=== PATIENT | male | born 1960 | race Asian ===

== ENCOUNTER 2019-09-21 14:53 | Inpatient (IN) | payer MEDICARE, OTHER ==
[~2019-09-21] VITALS: Ht 144.8 cm; Wt 62.9 kg
[~2019-09-21 14:53] MED LIST: AMLO10TA7 PO; ASPI-825 PO; ERGO400C PO; LORA-999 PO; MULT1TAB70 PO; OMEP20 PO; SIMV-261 PO
[2019-09-21] MEDS ORDERED: BACL10TA PO (15:16)
[2019-09-21] MEDS ORDERED: NIFE10 PO (15:16)
[2019-09-21] MEDS ORDERED: ATOR40TA28 PO (15:16)
[2019-09-21] MEDS ORDERED: SODIUM CHLORIDE 0.9% 2,050 ML IV ONE (15:39)
[2019-09-21 15:42] LABS: GLUCOSE,POINT OF CARE 107 MG/DL (70-110)
[2019-09-21] MEDS ORDERED: 0.9% SODIUM CHLORIDE 10 ML SYRINGE IVP PRN (15:45)
[2019-09-21 16:10] LABS: BASOPHILS % (AUTO) 0.1 % (0.0-2.0); EOSINOPHILS % (AUTO) 0 % (1.0-6.0); HEMATOCRIT 37.5 % (41-53); HEMOGLOBIN 12.9 g/dL (13.5-17.5); LYMPHOCYTES # (AUTO) 0.5 K/uL (1.0-4.8); LYMPHOCYTES % (AUTO) 6.3 % (22.0-44.0); MEAN CORPUSCULAR HGB CONC 34.5 G/dL (31.0-37.0); MEAN CORPUSCULAR VOLUME 93 fL (80-100); MONOCYTES # (AUTO) 1.2 K/uL (0.1-1.0); NEUTROPHILS # (AUTO) 5.6 K/uL (1.8-7.7); NEUTROPHILS % (AUTO) 77.6 % (40.0-70.0); PLATELET COUNT (AUTO) 182 K/uL (150-450); RED BLOOD CELL COUNT(AUTO) 4.04 MIL/uL (4.50-5.90); RED CELL DISTRIBUTION WIDTH 13.5 % (11.5-14.5)
[2019-09-21 16:23] LABS: INR 1.1 (0.9-1.1); PROTHROMBIN TIME 11.4 SEC (9.4-11.6)
[2019-09-21 16:36] LABS: B-TYPE NATRIURETIC PEPTIDE 16 pg/mL (0-100)
[2019-09-21 16:37] LABS: ALANINE AMINOTRANSFERASE 58 U/L (12-78); ALBUMIN 3.3 g/dL (3.4-5.0); ALKALINE PHOSPHATASE 62 U/L (46-116); ANION GAP 11 mmol/L (8-16); ASPARTATE AMINOTRANSFERASE 67 U/L (15-37); BILIRUBIN,TOTAL 0.5 mg/dL (0.1-1.0); CALCIUM, TOTAL 8.2 mg/dL (8.8-10.5); CARBON DIOXIDE 23 mmol/L (22-29); CHLORIDE 101 mmol/L (98-107); CREATININE 0.89 mg/dL (0.60-1.30); GLOMERULAR FILTR. RATE CALC > 60 mL/min (>60); GLUCOSE,RANDOM 119 mg/dL (70-110); SODIUM SERUM 135 mmol/L (136-145); TOTAL PROTEIN, SERUM 6.5 g/dL (6.4-8.2); UREA NITROGEN, BLOOD 22 mg/dL (7-18)
[2019-09-21 16:51] LABS: LACTIC ACID 1.2 mmol/L (0.4-2.0)
[2019-09-21 17:02] LABS: INFLUENZA TYPE A POSITIVE FOR TYPE A (NEGATIVE)
[2019-09-21 17:03] LABS: INFLUENZA TYPE B NEGATIVE FOR TYPE B (NEGATIVE)
[2019-09-21] MEDS ORDERED: ASPI-1182 PO (17:08)
[2019-09-21] MEDS ORDERED: MULT-34 PO (17:08)
[2019-09-21] MEDS ORDERED: NIFE-40 PO (17:08)
[2019-09-21] MEDS ORDERED: CefTRIAXone 1 GM/DEXTROSE 50 ML IV ONE (17:15)
[2019-09-21] MEDS ORDERED: AZITHROMYCIN 500 MG/NS 250 ML IV ONE (17:15)
[2019-09-21] MEDS ORDERED: POTASSIUM CHLORIDE 20 MEQ ER TABLET PO ONE (17:15)
[2019-09-21 17:36] LABS: APPEARANCE,URINE CLEAR (CLEAR); BILIRUBIN,URINE NEGATIVE (NEGATIVE); GLUCOSE, URINE (UA) NEGATIVE (NEGATIVE); KETONES,URINE TRACE mg/dL (NEGATIVE); LEUKOCYTE ESTERASE ,URINE NEGATIVE (NEGATIVE); NITRATE,URINE NEGATIVE (NEGATIVE); OCCULT BLOOD,URINE NEGATIVE (NEGATIVE); PROTEIN,URINE POS 1+ (NEGATIVE); UROBILINOGEN,URINE 0.2 mg/dL (<=1.0)
[2019-09-21 17:53] LABS: BACTERIA,URINE None Seen /HPF (None Seen); RBC,URINE None Seen /HPF (0-2); SQUAMOUS EPITHELIAL CELL,UR None Seen /LPF (None Seen); WBC,URINE 0-2 /HPF (0-5)
[2019-09-21] MEDS ORDERED: OSELTAMIVIR PHOSPHATE 75 MG CAPSULE PO ONE (18:15)
[2019-09-21] MEDS ORDERED: ACETAMINOPHEN 500 MG TABLET PO ONE (18:15)
[2019-09-21] MEDS ORDERED: ONDANSETRON HCL 4 MG/2 ML VIAL IVP PRN (18:30)
[2019-09-21] MEDS ORDERED: ACETAMINOPHEN 325 MG TABLET PO PRN (18:30)
[2019-09-22] VITALS (7 sets, daily range): BP systolic 105–131; BP diastolic 59–82
[2019-09-22] MEDS ORDERED: ONDANSETRON HCL 4 MG/2 ML VIAL IVP PRN (01:30)
[2019-09-22] MEDS ORDERED: MAGNESIUM HYDROXIDE SUSPENSION 30 ML UDCUP PO PRN (01:30)
[2019-09-22] MEDS ORDERED: ZOLPIDEM TARTRATE 5 MG TABLET PO PRN (01:30)
[2019-09-22] MEDS ORDERED: BISACODYL 10 MG RECTAL RECTAL SUPPOSITORY PR PRN (01:30)
[2019-09-22] MEDS ORDERED: ALBUTEROL SULFATE 2.5 MG/0.5 ML NEB SOLUTION NEB PRN (01:30)
[2019-09-22] MEDS ORDERED: IPRATROPIUM BROMIDE 0.5 MG/2.5 ML NEB SOLUTION NEB PRN (01:30)
[2019-09-22] MEDS ORDERED: MORPHINE SULFATE 2 MG/ML SYRINGE IVP PRN (01:30)
[2019-09-22] MEDS: ACETAMINOPHEN 325 MG TABLET PO PRN (04:24)
[2019-09-22 06:17] LABS: BASOPHILS % (AUTO) 0.4 % (0.0-2.0); EOSINOPHILS % (AUTO) 0 % (1.0-6.0); HEMATOCRIT 37.3 % (41-53); HEMOGLOBIN 12.9 g/dL (13.5-17.5); LYMPHOCYTES # (AUTO) 0.7 K/uL (1.0-4.8); LYMPHOCYTES % (AUTO) 7.8 % (22.0-44.0); MEAN CORPUSCULAR HEMOGLOBIN 32.2 pg (26.0-34.0); MEAN CORPUSCULAR HGB CONC 34.5 G/dL (31.0-37.0); MEAN CORPUSCULAR VOLUME 93 fL (80-100); MONOCYTES # (AUTO) 0.9 K/uL (0.1-1.0); MONOCYTES % (AUTO) 10.4 % (2.0-9.0); NEUTROPHILS % (AUTO) 81.4 % (40.0-70.0); PLATELET COUNT (AUTO) 162 K/uL (150-450)
[2019-09-22 06:41] LABS: ALANINE AMINOTRANSFERASE 67 U/L (12-78); ALKALINE PHOSPHATASE 54 U/L (46-116); ANION GAP 11 mmol/L (8-16); ASPARTATE AMINOTRANSFERASE 103 U/L (15-37); BILIRUBIN,TOTAL 0.4 mg/dL (0.1-1.0); CALCIUM, TOTAL 8.3 mg/dL (8.8-10.5); CARBON DIOXIDE 23 mmol/L (22-29); CHLORIDE 106 mmol/L (98-107); CREATININE 0.82 mg/dL (0.60-1.30); GLOMERULAR FILTR. RATE CALC > 60 mL/min (>60); GLUCOSE,RANDOM 87 mg/dL (70-110); POTASSIUM 3.4 mmol/L (3.5-5.1); SODIUM SERUM 140 mmol/L (136-145); TOTAL PROTEIN, SERUM 6.2 g/dL (6.4-8.2); UREA NITROGEN, BLOOD 16 mg/dL (7-18)
[2019-09-22] MEDS: ASPIRIN 81 MG EC TABLET PO SCH (07:55)
[2019-09-22] MEDS: MULTIVITAMINS WITH MINERALS, THERAPEUTIC TABLET PO SCH (07:55)
[2019-09-22] MEDS: NIFEdipine 30 MG ER TABLET PO SCH (07:55)
[2019-09-22] MEDS: CHOLECALCIFEROL (VIT D3) 400 UNITS TABLET PO SCH (07:55)
[2019-09-22] MEDS: DOCUSATE SODIUM 100 MG CAPSULE PO SCH ×2 (07:55→20:31)
[2019-09-22] MEDS: HEPARIN SODIUM,PORCINE 5,000 UNITS/ML VIAL SQ SCH ×2 (07:56→15:44)
[2019-09-22] MEDS: OSELTAMIVIR PHOSPHATE 75 MG CAPSULE PO SCH ×2 (13:19→20:31)
[2019-09-22] MEDS: HYDROCODONE/ACETAMINOPHEN 5-325 MG TABLET PO PRN ×2 (14:53→20:30)
[2019-09-22] MEDS: AZITHROMYCIN 500 MG/NS 250 ML IV SCH (15:45)
[2019-09-22] MEDS ORDERED: SODIUM CHLORIDE 0.9% 250 ML IV ONE (18:12)
[2019-09-22] MEDS: CefTRIAXone 1 GM/DEXTROSE 50 ML IV SCH (18:14)
[2019-09-22] MEDS ORDERED: POTASSIUM CHL 10 MEQ/WATER 50 ML IV PRN (18:15)
[2019-09-22] MEDS ORDERED: POTASSIUM CHLORIDE 20 MEQ ER TABLET PO PRN (18:15)
[2019-09-22] MEDS: BACLOFEN 10 MG TABLET PO SCH (20:31)
[2019-09-22] MEDS: ATORVASTATIN CALCIUM 40 MG TABLET PO SCH (20:31)
[2019-09-22] MEDS ORDERED: 0.9% SODIUM CHLORIDE 5 ML NEB SOLUTION NEB ONE (23:07)
[2019-09-23 05:33] VITALS: BP 124/74
[2019-09-23 07:44] VITALS: BP 122/78
[2019-09-23 08:02] LABS: BASOPHILS % (AUTO) 0.4 % (0.0-2.0); EOSINOPHILS % (AUTO) 0.4 % (1.0-6.0); HEMATOCRIT 35.7 % (41-53); HEMOGLOBIN 12.3 g/dL (13.5-17.5); LYMPHOCYTES # (AUTO) 1.3 K/uL (1.0-4.8); LYMPHOCYTES % (AUTO) 30.9 % (22.0-44.0); MEAN CORPUSCULAR HEMOGLOBIN 32.3 pg (26.0-34.0); MEAN CORPUSCULAR HGB CONC 34.3 G/dL (31.0-37.0); MEAN CORPUSCULAR VOLUME 94 fL (80-100); MONOCYTES # (AUTO) 0.6 K/uL (0.1-1.0); MONOCYTES % (AUTO) 13.7 % (2.0-9.0); NEUTROPHILS # (AUTO) 2.3 K/uL (1.8-7.7); NEUTROPHILS % (AUTO) 54.6 % (40.0-70.0); PLATELET COUNT (AUTO) 163 K/uL (150-450); RED CELL DISTRIBUTION WIDTH 14.1 % (11.5-14.5)
[2019-09-23 08:28] LABS: ALANINE AMINOTRANSFERASE 57 U/L (12-78); ALBUMIN 2.7 g/dL (3.4-5.0); ALKALINE PHOSPHATASE 48 U/L (46-116); ANION GAP 7 mmol/L (8-16); ASPARTATE AMINOTRANSFERASE 79 U/L (15-37); BILIRUBIN,TOTAL 0.2 mg/dL (0.1-1.0); CALCIUM, TOTAL 8.1 mg/dL (8.8-10.5); CARBON DIOXIDE 26 mmol/L (22-29); CHLORIDE 107 mmol/L (98-107); CREATININE 0.83 mg/dL (0.60-1.30); GLOMERULAR FILTR. RATE CALC > 60 mL/min (>60); GLUCOSE,RANDOM 96 mg/dL (70-110); POTASSIUM 3.7 mmol/L (3.5-5.1); SODIUM SERUM 140 mmol/L (136-145); TOTAL PROTEIN, SERUM 5.8 g/dL (6.4-8.2); UREA NITROGEN, BLOOD 22 mg/dL (7-18)
[2019-09-23] MEDS: ASPIRIN 81 MG EC TABLET PO SCH (09:54)
[2019-09-23] MEDS: OSELTAMIVIR PHOSPHATE 75 MG CAPSULE PO SCH ×2 (09:54→20:48)
[2019-09-23] MEDS: CHOLECALCIFEROL (VIT D3) 400 UNITS TABLET PO SCH (09:54)
[2019-09-23] MEDS: DOCUSATE SODIUM 100 MG CAPSULE PO SCH ×2 (09:54→20:48)
[2019-09-23] MEDS: MULTIVITAMINS WITH MINERALS, THERAPEUTIC TABLET PO SCH (09:54)
[2019-09-23] MEDS: HEPARIN SODIUM,PORCINE 5,000 UNITS/ML VIAL SQ SCH ×3 (09:57→16:38)
[2019-09-23] MEDS: NIFEdipine 30 MG ER TABLET PO SCH (09:57)
[2019-09-23 12:11] VITALS: BP 122/75
[2019-09-23 15:45] VITALS: BP 127/72
[2019-09-23] MEDS: CefTRIAXone 1 GM/DEXTROSE 50 ML IV SCH (16:38)
[2019-09-23] MEDS: AZITHROMYCIN 500 MG/NS 250 ML IV SCH (17:43)
[2019-09-23 19:32] VITALS: BP 128/76
[2019-09-23] MEDS: ATORVASTATIN CALCIUM 40 MG TABLET PO SCH (20:48)
[2019-09-23] MEDS: BACLOFEN 10 MG TABLET PO SCH (20:48)
[2019-09-24] VITALS (7 sets, daily range): BP systolic 111–147; BP diastolic 72–94
[2019-09-24 07:31] LABS: BASOPHILS % (AUTO) 0.5 % (0.0-2.0); EOSINOPHILS % (AUTO) 1.1 % (1.0-6.0); HEMATOCRIT 41.6 % (41-53); LYMPHOCYTES # (AUTO) 1.4 K/uL (1.0-4.8); LYMPHOCYTES % (AUTO) 28.7 % (22.0-44.0); MEAN CORPUSCULAR HEMOGLOBIN 31.3 pg (26.0-34.0); MEAN CORPUSCULAR HGB CONC 33.6 G/dL (31.0-37.0); MEAN CORPUSCULAR VOLUME 93 fL (80-100); MONOCYTES # (AUTO) 0.7 K/uL (0.1-1.0); MONOCYTES % (AUTO) 13.5 % (2.0-9.0); NEUTROPHILS # (AUTO) 2.8 K/uL (1.8-7.7); NEUTROPHILS % (AUTO) 56.2 % (40.0-70.0); PLATELET COUNT (AUTO) 187 K/uL (150-450); RED BLOOD CELL COUNT(AUTO) 4.46 MIL/uL (4.50-5.90); RED CELL DISTRIBUTION WIDTH 13.6 % (11.5-14.5)
[2019-09-24 07:51] LABS: ALANINE AMINOTRANSFERASE 68 U/L (12-78); ALBUMIN 2.9 g/dL (3.4-5.0); ALKALINE PHOSPHATASE 57 U/L (46-116); ANION GAP 6 mmol/L (8-16); ASPARTATE AMINOTRANSFERASE 76 U/L (15-37); BILIRUBIN,TOTAL 0.4 mg/dL (0.1-1.0); CALCIUM, TOTAL 8.2 mg/dL (8.8-10.5); CARBON DIOXIDE 29 mmol/L (22-29); CHLORIDE 102 mmol/L (98-107); CREATININE 0.58 mg/dL (0.60-1.30); GLOMERULAR FILTR. RATE CALC > 60 mL/min (>60); GLUCOSE,RANDOM 91 mg/dL (70-110); POTASSIUM 3.8 mmol/L (3.5-5.1); SODIUM SERUM 137 mmol/L (136-145); TOTAL PROTEIN, SERUM 6.5 g/dL (6.4-8.2)
[2019-09-24 08:02] LABS: UREA NITROGEN, BLOOD 11 mg/dL (7-18)
[2019-09-24] MEDS: DOCUSATE SODIUM 100 MG CAPSULE PO SCH ×2 (09:11→21:19)
[2019-09-24] MEDS: CHOLECALCIFEROL (VIT D3) 400 UNITS TABLET PO SCH (09:11)
[2019-09-24] MEDS: MULTIVITAMINS WITH MINERALS, THERAPEUTIC TABLET PO SCH (09:11)
[2019-09-24] MEDS: OSELTAMIVIR PHOSPHATE 75 MG CAPSULE PO SCH ×2 (09:12→21:19)
[2019-09-24] MEDS: HEPARIN SODIUM,PORCINE 5,000 UNITS/ML VIAL SQ SCH ×3 (09:12→15:34)
[2019-09-24] MEDS: NIFEdipine 30 MG ER TABLET PO SCH (09:12)
[2019-09-24] MEDS: ASPIRIN 81 MG EC TABLET PO SCH (09:12)
[2019-09-24] MEDS: AZITHROMYCIN 500 MG/NS 250 ML IV SCH (15:35)
[2019-09-24] MEDS: CefTRIAXone 1 GM/DEXTROSE 50 ML IV SCH (17:01)
[2019-09-24] MEDS: BACLOFEN 10 MG TABLET PO SCH (21:19)
[2019-09-24] MEDS: ATORVASTATIN CALCIUM 40 MG TABLET PO SCH (21:19)
[2019-09-24] MEDS: ACETAMINOPHEN 325 MG TABLET PO PRN (23:55)
[2019-09-25 04:59] VITALS: BP 121/83
[2019-09-25 07:40] VITALS: BP 116/80
[2019-09-25 07:58] LABS: BASOPHILS % (AUTO) 0.6 % (0.0-2.0); EOSINOPHILS % (AUTO) 2.6 % (1.0-6.0); HEMATOCRIT 41.6 % (41-53); HEMOGLOBIN 14.1 g/dL (13.5-17.5); LYMPHOCYTES # (AUTO) 1.4 K/uL (1.0-4.8); LYMPHOCYTES % (AUTO) 33.6 % (22.0-44.0); MEAN CORPUSCULAR HEMOGLOBIN 31.7 pg (26.0-34.0); MEAN CORPUSCULAR HGB CONC 33.9 G/dL (31.0-37.0); MEAN CORPUSCULAR VOLUME 93 fL (80-100); MONOCYTES # (AUTO) 0.8 K/uL (0.1-1.0); MONOCYTES % (AUTO) 19.4 % (2.0-9.0); NEUTROPHILS # (AUTO) 1.8 K/uL (1.8-7.7); NEUTROPHILS % (AUTO) 43.8 % (40.0-70.0); PLATELET COUNT (AUTO) 207 K/uL (150-450); RED BLOOD CELL COUNT(AUTO) 4.45 MIL/uL (4.50-5.90); RED CELL DISTRIBUTION WIDTH 13.5 % (11.5-14.5)
[2019-09-25 08:38] LABS: ALANINE AMINOTRANSFERASE 124 U/L (12-78); ALBUMIN 2.8 g/dL (3.4-5.0); ALKALINE PHOSPHATASE 65 U/L (46-116); ANION GAP 10 mmol/L (8-16); ASPARTATE AMINOTRANSFERASE 117 U/L (15-37); BILIRUBIN,TOTAL 0.4 mg/dL (0.1-1.0); CALCIUM, TOTAL 8.6 mg/dL (8.8-10.5); CARBON DIOXIDE 25 mmol/L (22-29); CHLORIDE 101 mmol/L (98-107); CREATININE 0.71 mg/dL (0.60-1.30); GLOMERULAR FILTR. RATE CALC > 60 mL/min (>60); GLUCOSE,RANDOM 95 mg/dL (70-110); POTASSIUM 4.1 mmol/L (3.5-5.1); SODIUM SERUM 136 mmol/L (136-145); TOTAL PROTEIN, SERUM 6.6 g/dL (6.4-8.2); UREA NITROGEN, BLOOD 18 mg/dL (7-18)
[2019-09-25] MEDS: ASPIRIN 81 MG EC TABLET PO SCH (10:44)
[2019-09-25] MEDS: MULTIVITAMINS WITH MINERALS, THERAPEUTIC TABLET PO SCH (10:45)
[2019-09-25] MEDS: OSELTAMIVIR PHOSPHATE 75 MG CAPSULE PO SCH ×2 (10:45→20:54)
[2019-09-25] MEDS: NIFEdipine 30 MG ER TABLET PO SCH (10:45)
[2019-09-25] MEDS: CHOLECALCIFEROL (VIT D3) 400 UNITS TABLET PO SCH (10:45)
[2019-09-25] MEDS: DOCUSATE SODIUM 100 MG CAPSULE PO SCH ×2 (10:45→20:55)
[2019-09-25] MEDS: HEPARIN SODIUM,PORCINE 5,000 UNITS/ML VIAL SQ SCH ×4 (10:45→23:35)
[2019-09-25 11:21] VITALS: BP 136/85
[2019-09-25 15:12] VITALS: BP 148/86
[2019-09-25] MEDS ORDERED: SODIUM CHLORIDE 0.9% 100 ML ONE (16:38)
[2019-09-25] MEDS: AZITHROMYCIN 500 MG/NS 250 ML IV SCH (16:47)
[2019-09-25] MEDS: CefTRIAXone 1 GM/DEXTROSE 50 ML IV SCH (18:20)
[2019-09-25 19:57] VITALS: BP 147/83
[2019-09-25] MEDS: BACLOFEN 10 MG TABLET PO SCH (20:54)
[2019-09-25] MEDS: ATORVASTATIN CALCIUM 40 MG TABLET PO SCH (20:54)
[2019-09-26 00:04] VITALS: BP 125/81
[2019-09-26 05:50] VITALS: BP 145/88
[2019-09-26 07:06] VITALS: BP 128/96
[2019-09-26 07:17] LABS: BASOPHILS % (AUTO) 0.6 % (0.0-2.0); HEMATOCRIT 40.3 % (41-53); HEMOGLOBIN 13.9 g/dL (13.5-17.5); LYMPHOCYTES # (AUTO) 1.6 K/uL (1.0-4.8); LYMPHOCYTES % (AUTO) 29.9 % (22.0-44.0); MEAN CORPUSCULAR HEMOGLOBIN 31.9 pg (26.0-34.0); MEAN CORPUSCULAR HGB CONC 34.4 G/dL (31.0-37.0); MEAN CORPUSCULAR VOLUME 93 fL (80-100); MONOCYTES # (AUTO) 0.8 K/uL (0.1-1.0); MONOCYTES % (AUTO) 15.6 % (2.0-9.0); NEUTROPHILS # (AUTO) 2.7 K/uL (1.8-7.7); NEUTROPHILS % (AUTO) 50.9 % (40.0-70.0); PLATELET COUNT (AUTO) 237 K/uL (150-450); RED BLOOD CELL COUNT(AUTO) 4.34 MIL/uL (4.50-5.90); RED CELL DISTRIBUTION WIDTH 13.3 % (11.5-14.5)
[2019-09-26 07:37] LABS: ALANINE AMINOTRANSFERASE 224 U/L (12-78); ALBUMIN 2.8 g/dL (3.4-5.0); ALKALINE PHOSPHATASE 71 U/L (46-116); ANION GAP 7 mmol/L (8-16); ASPARTATE AMINOTRANSFERASE 182 U/L (15-37); BILIRUBIN,TOTAL 0.3 mg/dL (0.1-1.0); CALCIUM, TOTAL 8.7 mg/dL (8.8-10.5); CARBON DIOXIDE 28 mmol/L (22-29); CHLORIDE 103 mmol/L (98-107); CREATININE 0.81 mg/dL (0.60-1.30); GLOMERULAR FILTR. RATE CALC > 60 mL/min (>60); GLUCOSE,RANDOM 101 mg/dL (70-110); POTASSIUM 4.2 mmol/L (3.5-5.1); SODIUM SERUM 138 mmol/L (136-145); TOTAL PROTEIN, SERUM 6.5 g/dL (6.4-8.2); UREA NITROGEN, BLOOD 16 mg/dL (7-18)
[2019-09-26] MEDS: CHOLECALCIFEROL (VIT D3) 400 UNITS TABLET PO SCH (09:59)
[2019-09-26] MEDS: MULTIVITAMINS WITH MINERALS, THERAPEUTIC TABLET PO SCH (09:59)
[2019-09-26] MEDS: OSELTAMIVIR PHOSPHATE 75 MG CAPSULE PO SCH ×2 (09:59→20:39)
[2019-09-26] MEDS: DOCUSATE SODIUM 100 MG CAPSULE PO SCH ×2 (09:59→20:44)
[2019-09-26] MEDS: NIFEdipine 30 MG ER TABLET PO SCH (09:59)
[2019-09-26] MEDS: HEPARIN SODIUM,PORCINE 5,000 UNITS/ML VIAL SQ SCH ×2 (09:59→16:38)
[2019-09-26] MEDS: ASPIRIN 81 MG EC TABLET PO SCH (10:35)
[2019-09-26 11:49] VITALS: BP 130/79
[2019-09-26 15:00] VITALS: BP 124/68
[2019-09-26] MEDS: CefTRIAXone 1 GM/DEXTROSE 50 ML IV SCH (16:38)
[2019-09-26] MEDS: AZITHROMYCIN 500 MG/NS 250 ML IV SCH (18:33)
[2019-09-26 19:36] VITALS: BP 137/82
[2019-09-26] MEDS: BACLOFEN 10 MG TABLET PO SCH (20:39)
[2019-09-26] MEDS: ATORVASTATIN CALCIUM 40 MG TABLET PO SCH (20:39)
[2019-09-27] VITALS (7 sets, daily range): BP systolic 122–142; BP diastolic 77–93
[2019-09-27 07:29] LABS: BASOPHILS % (AUTO) 0.4 % (0.0-2.0); HEMATOCRIT 41.7 % (41-53); HEMOGLOBIN 14.3 g/dL (13.5-17.5); LYMPHOCYTES # (AUTO) 1.7 K/uL (1.0-4.8); LYMPHOCYTES % (AUTO) 33.2 % (22.0-44.0); MEAN CORPUSCULAR HEMOGLOBIN 31.8 pg (26.0-34.0); MEAN CORPUSCULAR HGB CONC 34.3 G/dL (31.0-37.0); MEAN CORPUSCULAR VOLUME 93 fL (80-100); MONOCYTES # (AUTO) 0.8 K/uL (0.1-1.0); MONOCYTES % (AUTO) 16.4 % (2.0-9.0); NEUTROPHILS # (AUTO) 2.3 K/uL (1.8-7.7); PLATELET COUNT (AUTO) 274 K/uL (150-450); RED BLOOD CELL COUNT(AUTO) 4.51 MIL/uL (4.50-5.90); RED CELL DISTRIBUTION WIDTH 13.2 % (11.5-14.5)
[2019-09-27 07:44] LABS: ALANINE AMINOTRANSFERASE 270 U/L (12-78); ALBUMIN 2.9 g/dL (3.4-5.0); ALKALINE PHOSPHATASE 72 U/L (46-116); ANION GAP 7 mmol/L (8-16); ASPARTATE AMINOTRANSFERASE 162 U/L (15-37); BILIRUBIN,TOTAL 0.4 mg/dL (0.1-1.0); CALCIUM, TOTAL 8.8 mg/dL (8.8-10.5); CARBON DIOXIDE 27 mmol/L (22-29); CHLORIDE 105 mmol/L (98-107); CREATININE 0.65 mg/dL (0.60-1.30); GLOMERULAR FILTR. RATE CALC > 60 mL/min (>60); GLUCOSE,RANDOM 92 mg/dL (70-110); POTASSIUM 4.2 mmol/L (3.5-5.1); SODIUM SERUM 139 mmol/L (136-145); TOTAL PROTEIN, SERUM 6.7 g/dL (6.4-8.2); UREA NITROGEN, BLOOD 16 mg/dL (7-18)
[2019-09-27] MEDS: HEPARIN SODIUM,PORCINE 5,000 UNITS/ML VIAL SQ SCH ×3 (08:51→17:40)
[2019-09-27] MEDS: NIFEdipine 30 MG ER TABLET PO SCH (08:52)
[2019-09-27] MEDS: ASPIRIN 81 MG EC TABLET PO SCH (08:52)
[2019-09-27] MEDS: OSELTAMIVIR PHOSPHATE 75 MG CAPSULE PO SCH (08:52)
[2019-09-27] MEDS: DOCUSATE SODIUM 100 MG CAPSULE PO SCH ×2 (08:52→20:31)
[2019-09-27] MEDS: CHOLECALCIFEROL (VIT D3) 400 UNITS TABLET PO SCH (08:52)
[2019-09-27] MEDS: MULTIVITAMINS WITH MINERALS, THERAPEUTIC TABLET PO SCH (08:52)
[2019-09-27] MEDS: HYDROCODONE/ACETAMINOPHEN 5-325 MG TABLET PO PRN ×3 (08:53→17:41)
[2019-09-28] MEDS: HEPARIN SODIUM,PORCINE 5,000 UNITS/ML VIAL SQ SCH ×3 (00:54→17:43)
[2019-09-28 04:19] VITALS: BP 127/76
[2019-09-28 06:14] LABS: BASOPHILS % (AUTO) 0.3 % (0.0-2.0); EOSINOPHILS % (AUTO) 2.8 % (1.0-6.0); HEMATOCRIT 41.6 % (41-53); LYMPHOCYTES # (AUTO) 1.6 K/uL (1.0-4.8); LYMPHOCYTES % (AUTO) 24.2 % (22.0-44.0); MEAN CORPUSCULAR HEMOGLOBIN 31.4 pg (26.0-34.0); MEAN CORPUSCULAR HGB CONC 33.7 G/dL (31.0-37.0); MEAN CORPUSCULAR VOLUME 93 fL (80-100); MONOCYTES # (AUTO) 0.9 K/uL (0.1-1.0); MONOCYTES % (AUTO) 13.9 % (2.0-9.0); NEUTROPHILS # (AUTO) 3.9 K/uL (1.8-7.7); NEUTROPHILS % (AUTO) 58.8 % (40.0-70.0); PLATELET COUNT (AUTO) 331 K/uL (150-450); RED BLOOD CELL COUNT(AUTO) 4.47 MIL/uL (4.50-5.90); RED CELL DISTRIBUTION WIDTH 13.7 % (11.5-14.5)
[2019-09-28 06:49] LABS: ALANINE AMINOTRANSFERASE 242 U/L (12-78); ALBUMIN 2.9 g/dL (3.4-5.0); ALKALINE PHOSPHATASE 75 U/L (46-116); ANION GAP 7 mmol/L (8-16); ASPARTATE AMINOTRANSFERASE 105 U/L (15-37); BILIRUBIN,TOTAL 0.3 mg/dL (0.1-1.0); CALCIUM, TOTAL 8.5 mg/dL (8.8-10.5); CARBON DIOXIDE 27 mmol/L (22-29); CHLORIDE 100 mmol/L (98-107); CREATININE 0.72 mg/dL (0.60-1.30); GLOMERULAR FILTR. RATE CALC > 60 mL/min (>60); GLUCOSE,RANDOM 106 mg/dL (70-110); POTASSIUM 4.2 mmol/L (3.5-5.1); SODIUM SERUM 134 mmol/L (136-145); TOTAL PROTEIN, SERUM 6.6 g/dL (6.4-8.2); UREA NITROGEN, BLOOD 18 mg/dL (7-18)
[2019-09-28 08:27] VITALS: BP 126/82
[2019-09-28] MEDS: NIFEdipine 30 MG ER TABLET PO SCH (09:09)
[2019-09-28] MEDS: DOCUSATE SODIUM 100 MG CAPSULE PO SCH ×2 (09:09→20:42)
[2019-09-28] MEDS: ASPIRIN 81 MG EC TABLET PO SCH (09:09)
[2019-09-28] MEDS: MULTIVITAMINS WITH MINERALS, THERAPEUTIC TABLET PO SCH (09:09)
[2019-09-28] MEDS: CHOLECALCIFEROL (VIT D3) 400 UNITS TABLET PO SCH (09:10)
[2019-09-28 11:56] VITALS: BP 117/71
[2019-09-28 16:13] VITALS: BP 129/73
[2019-09-28 20:16] VITALS: BP 144/93
[2019-09-29] MEDS: HEPARIN SODIUM,PORCINE 5,000 UNITS/ML VIAL SQ SCH ×3 (00:24→15:43)
[2019-09-29 00:34] VITALS: BP 135/76
[2019-09-29 04:00] VITALS: BP 142/80
[2019-09-29] MEDS: MULTIVITAMINS WITH MINERALS, THERAPEUTIC TABLET PO SCH (08:16)
[2019-09-29] MEDS: DOCUSATE SODIUM 100 MG CAPSULE PO SCH (08:17)
[2019-09-29] MEDS: NIFEdipine 30 MG ER TABLET PO SCH (08:17)
[2019-09-29] MEDS: CHOLECALCIFEROL (VIT D3) 400 UNITS TABLET PO SCH (08:17)
[2019-09-29] MEDS: ASPIRIN 81 MG EC TABLET PO SCH (08:17)
[2019-09-29 08:24] VITALS: BP 127/79
[2019-09-29] MEDS ORDERED: CHOL400T56 PO (10:53)
[2019-09-29] MEDS ORDERED: DOCU-275 PO (10:54)
[2019-09-29] MEDS ORDERED: HEPA500018 SQ (10:54)
[2019-09-29] MEDS ORDERED: AUD NEB (10:55)
[2019-09-29] MEDS ORDERED: ACET-784 PO (10:55)
[2019-09-29] MEDS ORDERED: BISA10SU11 PR (10:56)
[2019-09-29] MEDS ORDERED: HYDR-4061 PO (10:56)
[2019-09-29] MEDS ORDERED: IPRNEB IH (10:57)
[2019-09-29] MEDS ORDERED: MOM30 PO (10:57)
[2019-09-29 11:38] VITALS: BP 135/76
[2019-09-29 16:01] VITALS: BP 138/74
== END 2019-09-29 16:55 | DRG 194 ==
LOC: EMS 14:56 → 5N 23:18
PROVIDERS: ADMIT Hospitalist; ATTEND Hospitalist
DX: J10.00 Influenza due to other identified influenza virus with unspecified type of pneumonia (principal); R65.10 Systemic inflammatory response syndrome (SIRS) of non-infectious origin without acute organ dysfunction; N13.30 Unspecified hydronephrosis; E44.1 Mild protein-calorie malnutrition; I10 Essential (primary) hypertension; G80.9 Cerebral palsy, unspecified; Z68.30 Body mass index [BMI] 30.0-30.9, adult; E87.6 Hypokalemia; R74.0 Nonspecific elevation of levels of transaminase and lactic acid dehydrogenase [LDH]
CPT/HCPCS: 76700; 83605; 84132; 87040; 87804; 93005; 94640; 97110; 97112; 97116; 97140; 97162; 97166; 97530; 97535; J0456; J0696; J1644; J2405; J7030; J7050

== ENCOUNTER 2019-12-20 18:55 | Emergency (ER) | payer MEDICARE, OTHER ==
[~2019-12-20] VITALS: Ht 137.2 cm; Wt 66.3 kg
[~2019-12-20 18:55] MED LIST changes: +ACET-784 PO; -AMLO10TA7 PO; +ASPI-1111 PO; -ASPI-825 PO; +AUD NEB; +BISA10SU11 PR; +CHOL400T56 PO; +DOCU-275 PO; -ERGO400C PO; +HEPA500018 SQ; +HYDR-4061 PO; +IPRNEB IH; -LORA-999 PO; +MOM30 PO; +MULT-34 PO; -MULT1TAB70 PO; +NIFE-40 PO; -OMEP20 PO; -SIMV-261 PO
[2019-12-20] MEDS ORDERED: ATOR40TA28 PO (19:51)
[2019-12-20] MEDS ORDERED: SODIUM CHLORIDE 0.9% 1,000 ML IV ONE (20:30)
[2019-12-20] MEDS ORDERED: ACETAMINOPHEN 500 MG TABLET PO ONE (20:30)
[2019-12-20] MEDS ORDERED: KETOROLAC TROMETHAMINE 30 MG/ML VIAL IVP ONE (20:30)
[2019-12-20 20:44] LABS: BASOPHILS % (AUTO) 0.9 % (0.0-2.0); EOSINOPHILS % (AUTO) 2.4 % (1.0-6.0); HEMATOCRIT 44.5 % (41-53); HEMOGLOBIN 15.2 g/dL (13.5-17.5); LYMPHOCYTES # (AUTO) 1.8 K/uL (1.0-4.8); LYMPHOCYTES % (AUTO) 29.3 % (22.0-44.0); MEAN CORPUSCULAR HGB CONC 34.1 G/dL (31.0-37.0); MEAN CORPUSCULAR VOLUME 91 fL (80-100); MONOCYTES # (AUTO) 0.8 K/uL (0.1-1.0); MONOCYTES % (AUTO) 12.5 % (2.0-9.0); NEUTROPHILS # (AUTO) 3.4 K/uL (1.8-7.7); NEUTROPHILS % (AUTO) 54.9 % (40.0-70.0); PLATELET COUNT (AUTO) 320 K/uL (150-450); RED CELL DISTRIBUTION WIDTH 13.3 % (11.5-14.5)
[2019-12-20 20:53] LABS: ANION GAP 10 mmol/L (8-16); CALCIUM, TOTAL 8.7 mg/dL (8.8-10.5); CARBON DIOXIDE 26 mmol/L (22-29); CHLORIDE 102 mmol/L (98-107); GLOMERULAR FILTR. RATE CALC > 60 mL/min (>60); GLUCOSE,RANDOM 116 mg/dL (70-110); POTASSIUM 3.6 mmol/L (3.5-5.1); SODIUM SERUM 138 mmol/L (136-145); UREA NITROGEN, BLOOD 11 mg/dL (7-18)
[2019-12-20 21:05] LABS: LACTIC ACID 1.1 mmol/L (0.4-2.0)
[2019-12-20 21:07] LABS: APPEARANCE,URINE CLEAR (CLEAR); BILIRUBIN,URINE NEGATIVE (NEGATIVE); GLUCOSE, URINE (UA) NEGATIVE (NEGATIVE); KETONES,URINE NEGATIVE (NEGATIVE); LEUKOCYTE ESTERASE ,URINE NEGATIVE (NEGATIVE); NITRATE,URINE NEGATIVE (NEGATIVE); OCCULT BLOOD,URINE NEGATIVE (NEGATIVE); PROTEIN,URINE NEGATIVE (NEGATIVE)
[2019-12-20 21:12] LABS: INFLUENZA TYPE A NEGATIVE FOR TYPE A (NEGATIVE)
[2019-12-20 21:13] LABS: INFLUENZA TYPE B NEGATIVE FOR TYPE B (NEGATIVE)
[2019-12-20 21:17] LABS: ALANINE AMINOTRANSFERASE 34 U/L (12-78); ALBUMIN 3.7 g/dL (3.4-5.0); ALKALINE PHOSPHATASE 75 U/L (46-116); ASPARTATE AMINOTRANSFERASE 21 U/L (15-37); BILIRUBIN,TOTAL 0.3 mg/dL (0.1-1.0); CREATINE KINASE, TOTAL ONLY 94 U/L (39-308); TOTAL PROTEIN, SERUM 6.9 g/dL (6.4-8.2)
[2019-12-20 22:27] VITALS: BP 145/82
== END 2019-12-21 01:00 | disposition home or self-care (01) ==
LOC: EMS 18:58
DX: R05 Cough (principal); Z71.89 Other specified counseling
CPT/HCPCS: 36415; 71045; 80053; 81003; 82550; 83605; 83735; 84484; 85025; 87040; 87804; 93005; 96374; 99285; J1885; J7030

== ENCOUNTER 2019-12-21 08:38 | Emergency (ER) | payer MEDICARE, OTHER ==
[~2019-12-21] VITALS: Ht 127 cm; Wt 66.3 kg
[~2019-12-21 08:38] MED LIST changes: +ATOR40TA28 PO
[2019-12-21 10:34] VITALS: BP 116/80
[2019-12-23] MEDS ORDERED: AZIT250T9 PO ×2 (14:02→14:06)
== END 2019-12-21 10:55 | disposition home or self-care (01) ==
LOC: EMS 08:40
DX: J02.9 Acute pharyngitis, unspecified (principal); Z20.828 Contact with and (suspected) exposure to other viral communicable diseases; I10 Essential (primary) hypertension; Z79.899 Other long term (current) drug therapy; Z79.82 Long term (current) use of aspirin
CPT/HCPCS: 87635

== ENCOUNTER 2022-02-20 12:57 | Emergency (ER) | payer MEDICARE, OTHER ==
[~2022-02-20] VITALS: Ht 162.6 cm; Wt 64.8 kg
[~2022-02-20 12:57] MED LIST changes: -ASPI-1111 PO; +ASPI-1444 PO; +AZIT-84 PO; -DOCU-275 PO; +MAGN-169 PO; -MOM30 PO
[2022-02-20 13:59] LABS: BASOPHILS % (AUTO) 1.5 % (0.0-2.0); EOSINOPHILS % (AUTO) 2.3 % (1.0-6.0); HEMATOCRIT 42.3 % (41-53); HEMOGLOBIN 14.6 g/dL (13.5-17.5); LYMPHOCYTES # (AUTO) 1.5 K/uL (1.0-4.8); MEAN CORPUSCULAR HEMOGLOBIN 31.9 pg (26.0-34.0); MEAN CORPUSCULAR HGB CONC 34.5 G/dL (31.0-37.0); MEAN CORPUSCULAR VOLUME 93 fL (80-100); MONOCYTES # (AUTO) 0.6 K/uL (0.1-1.0); MONOCYTES % (AUTO) 14.2 % (2.0-9.0); NEUTROPHILS # (AUTO) 2.3 K/uL (1.8-7.7); PLATELET COUNT (AUTO) 283 K/uL (150-450); RED BLOOD CELL COUNT(AUTO) 4.58 MIL/uL (4.50-5.90); RED CELL DISTRIBUTION WIDTH 13.6 % (11.5-14.5)
[2022-02-20 14:16] LABS: ANION GAP 7 mmol/L (8-16); CALCIUM, TOTAL 8.8 mg/dL (8.8-10.5); CARBON DIOXIDE 30 mmol/L (22-29); CHLORIDE 97 mmol/L (98-107); CREATININE 0.67 mg/dL (0.60-1.30); GLOMERULAR FILTR. RATE CALC > 60 mL/min (>60); GLUCOSE,RANDOM 130 mg/dL (70-110); POTASSIUM 3.6 mmol/L (3.5-5.1); SODIUM SERUM 134 mmol/L (136-145); UREA NITROGEN, BLOOD 14 mg/dL (7-18)
[2022-02-20 14:17] LABS: D-DIMER 0.52 mg/L FEU (0.00-0.50); PROTHROMBIN TIME 10.4 SEC (9.4-11.6)
[2022-02-20 14:22] LABS: ALANINE AMINOTRANSFERASE 39 U/L (12-78); ALBUMIN 3.6 g/dL (3.4-5.0); ALKALINE PHOSPHATASE 80 U/L (46-116); ASPARTATE AMINOTRANSFERASE 27 U/L (15-37); BILIRUBIN,TOTAL 0.4 mg/dL (0.1-1.0)
[2022-02-20 14:29] LABS: B-TYPE NATRIURETIC PEPTIDE 17 pg/mL (0-100)
[2022-02-20] MEDS ORDERED: BACL10TA PO (16:35)
[2022-02-20 17:47] VITALS: BP 118/91
== END 2022-02-20 18:41 | disposition home or self-care (01) ==
LOC: EMS 13:02
DX: R07.89 Other chest pain (principal); I10 Essential (primary) hypertension; Z79.899 Other long term (current) drug therapy
CPT/HCPCS: 71045; 80053; 83880; 84484; 85025; 85379; 85610; 85730; 93005; 99285; 36415-L1; 36415-TC

== ENCOUNTER 2022-04-12 09:05 | Inpatient (IN) | payer MEDICARE, OTHER ==
[~2022-04-12] VITALS: Ht 162.6 cm; Wt 61.4 kg
[~2022-04-12 09:05] MED LIST changes: +BACL10TA PO
[2022-04-12] MEDS ORDERED: METH85CR16 TP (09:20)
[2022-04-12] MEDS ORDERED: ALBU8HFA IH (09:20)
[2022-04-12] MEDS ORDERED: HYDR25TA2 PO (09:20)
[2022-04-12] MEDS ORDERED: DOCU-350 PO (09:20)
[2022-04-12] MEDS ORDERED: AMOX1TAB15 PO (09:24)
[2022-04-12] MEDS ORDERED: KETOROLAC TROMETHAMINE 60 MG/2 ML VIAL IM ONE (09:45)
[2022-04-12] MEDS ORDERED: LIDOCAINE 1% 10 ML VIAL SQ ONE (09:45)
[2022-04-12 10:07] LABS: BASOPHILS % (AUTO) 0.4 % (0.0-2.0); EOSINOPHILS % (AUTO) 0.5 % (1.0-6.0); HEMATOCRIT 40.3 % (41-53); LYMPHOCYTES # (AUTO) 0.8 K/uL (1.0-4.8); LYMPHOCYTES % (AUTO) 7.5 % (22.0-44.0); MEAN CORPUSCULAR HEMOGLOBIN 31.7 pg (26.0-34.0); MEAN CORPUSCULAR HGB CONC 34.8 G/dL (31.0-37.0); MEAN CORPUSCULAR VOLUME 91 fL (80-100); MONOCYTES # (AUTO) 1.5 K/uL (0.1-1.0); MONOCYTES % (AUTO) 13.5 % (2.0-9.0); NEUTROPHILS # (AUTO) 8.6 K/uL (1.8-7.7); NEUTROPHILS % (AUTO) 78.1 % (40.0-70.0); PLATELET COUNT (AUTO) 238 K/uL (150-450); RED BLOOD CELL COUNT(AUTO) 4.43 MIL/uL (4.50-5.90); RED CELL DISTRIBUTION WIDTH 12.9 % (11.5-14.5)
[2022-04-12 10:24] LABS: LACTIC ACID 1.6 mmol/L (0.4-2.0)
[2022-04-12 10:30] LABS: ALANINE AMINOTRANSFERASE 38 U/L (12-78); ALBUMIN 3.1 g/dL (3.4-5.0); ALKALINE PHOSPHATASE 65 U/L (46-116); ANION GAP 7 mmol/L (8-16); ASPARTATE AMINOTRANSFERASE 31 U/L (15-37); BILIRUBIN,TOTAL 0.9 mg/dL (0.1-1.0); CALCIUM, TOTAL 8.8 mg/dL (8.8-10.5); CARBON DIOXIDE 26 mmol/L (22-29); CHLORIDE 95 mmol/L (98-107); CREATININE 0.77 mg/dL (0.60-1.30); GLUCOSE,RANDOM 138 mg/dL (70-110); SODIUM SERUM 128 mmol/L (136-145); TOTAL PROTEIN, SERUM 6.9 g/dL (6.4-8.2); UREA NITROGEN, BLOOD 13 mg/dL (7-18)
[2022-04-12 10:37] LABS: GLOMERULAR FILTR. RATE CALC > 60 mL/min (>60); POTASSIUM 2.7 mmol/L (3.5-5.1)
[2022-04-12] MEDS ORDERED: POTASSIUM CHLORIDE 10% 40 MEQ/30 ML LIQUID UDCUP PO ONE (11:15)
[2022-04-12] MEDS ORDERED: PIPERACILLIN/TAZO 3.375 GM/D5W 50 ML IV ONE (11:15)
[2022-04-12 12:30] LABS: COVID AG,FIA SOURCE NASAL SWAB
[2022-04-12] MEDS ORDERED: ONDANSETRON HCL 4 MG/2 ML VIAL IVP PRN (13:30)
[2022-04-12] MEDS ORDERED: ACETAMINOPHEN 325 MG TABLET PO PRN (13:30)
[2022-04-12] MEDS ORDERED: MAGNESIUM HYDROXIDE SUSPENSION 30 ML UDCUP PO PRN (13:30)
[2022-04-12] MEDS ORDERED: ZOLPIDEM TARTRATE 5 MG TABLET PO PRN (13:30)
[2022-04-12] MEDS ORDERED: BISACODYL 10 MG RECTAL RECTAL SUPPOSITORY PR PRN (13:30)
[2022-04-12 14:10] VITALS: BP 100/61
[2022-04-12] MEDS: HEPARIN SODIUM,PORCINE 5,000 UNITS/ML VIAL SQ SCH ×2 (16:00→23:42)
[2022-04-12 16:08] VITALS: BP 128/60
[2022-04-12] MEDS: HYDROCODONE/ACETAMINOPHEN 5-325 MG TABLET PO PRN ×2 (17:10→20:56)
[2022-04-12] MEDS ORDERED: SODIUM CHLORIDE 0.9% 500 ML IV ONE (17:10)
[2022-04-12] MEDS: PIPERACILLIN/TAZO 3.375 GM/D5W 50 ML IV SCH ×2 (17:11→23:41)
[2022-04-12 19:55] VITALS: BP 105/58
[2022-04-12] MEDS: DOCUSATE SODIUM 100 MG CAPSULE PO SCH (20:56)
[2022-04-13] MEDS: HYDROCODONE/ACETAMINOPHEN 5-325 MG TABLET PO PRN ×2 (05:01→11:30)
[2022-04-13 05:09] VITALS: BP 98/69
[2022-04-13] MEDS: PIPERACILLIN/TAZO 3.375 GM/D5W 50 ML IV SCH ×3 (05:20→18:48)
[2022-04-13] MEDS ORDERED: PNEUMOCOCCAL VACCINE POLYVALENT 0.5 ML VIAL [PPSV23] IM. ONE (05:45)
[2022-04-13 06:46] LABS: POTASSIUM 3.2 mmol/L (3.5-5.1)
[2022-04-13 07:49] VITALS: BP 100/74
[2022-04-13 07:57] LABS: BASOPHILS % (AUTO) 0.5 % (0.0-2.0); EOSINOPHILS % (AUTO) 4.8 % (1.0-6.0); HEMATOCRIT 36.6 % (41-53); HEMOGLOBIN 12.7 g/dL (13.5-17.5); LYMPHOCYTES # (AUTO) 1.2 K/uL (1.0-4.8); LYMPHOCYTES % (AUTO) 17.8 % (22.0-44.0); MEAN CORPUSCULAR HGB CONC 34.7 G/dL (31.0-37.0); MEAN CORPUSCULAR VOLUME 92 fL (80-100); MONOCYTES % (AUTO) 14.8 % (2.0-9.0); NEUTROPHILS # (AUTO) 4.1 K/uL (1.8-7.7); NEUTROPHILS % (AUTO) 62.1 % (40.0-70.0); PLATELET COUNT (AUTO) 220 K/uL (150-450); RED BLOOD CELL COUNT(AUTO) 3.98 MIL/uL (4.50-5.90); RED CELL DISTRIBUTION WIDTH 13.3 % (11.5-14.5)
[2022-04-13 08:19] LABS: ANION GAP 9 mmol/L (8-16); CALCIUM, TOTAL 8.2 mg/dL (8.8-10.5); CARBON DIOXIDE 25 mmol/L (22-29); CHLORIDE 96 mmol/L (98-107); CREATININE 0.84 mg/dL (0.60-1.30); GLUCOSE,RANDOM 125 mg/dL (70-110); SODIUM SERUM 130 mmol/L (136-145); UREA NITROGEN, BLOOD 18 mg/dL (7-18)
[2022-04-13 08:24] LABS: GLOMERULAR FILTR. RATE CALC > 60 mL/min (>60)
[2022-04-13] MEDS: HEPARIN SODIUM,PORCINE 5,000 UNITS/ML VIAL SQ SCH ×2 (08:24→16:00)
[2022-04-13] MEDS: PANTOPRAZOLE SODIUM 40 MG DR TABLET PO SCH (08:24)
[2022-04-13] MEDS: DOCUSATE SODIUM 100 MG CAPSULE PO SCH ×2 (08:24→20:42)
[2022-04-13] MEDS ORDERED: POTASSIUM CHLORIDE 20 MEQ ER TABLET PO PRN (12:00)
[2022-04-13] MEDS ORDERED: SODIUM CHLORIDE 0.9% 1,000 ML IV ONE (12:00)
[2022-04-13] MEDS ORDERED: POTASSIUM CHL 10 MEQ/WATER 50 ML IV PRN (12:00)
[2022-04-13] MEDS: MORPHINE SULFATE 2 MG/ML SYRINGE IVP PRN (13:03)
[2022-04-13 16:01] VITALS: BP 109/63
[2022-04-13 19:46] VITALS: BP 133/79
[2022-04-14] MEDS: HEPARIN SODIUM,PORCINE 5,000 UNITS/ML VIAL SQ SCH ×4 (00:36→23:30)
[2022-04-14] MEDS: PIPERACILLIN/TAZO 3.375 GM/D5W 50 ML IV SCH ×5 (00:36→23:29)
[2022-04-14] MEDS: HYDROCODONE/ACETAMINOPHEN 5-325 MG TABLET PO PRN (02:12)
[2022-04-14 03:27] VITALS: BP 116/69
[2022-04-14 08:05] VITALS: BP 134/90
[2022-04-14] MEDS: PANTOPRAZOLE SODIUM 40 MG DR TABLET PO SCH (08:53)
[2022-04-14] MEDS: DOCUSATE SODIUM 100 MG CAPSULE PO SCH ×2 (08:53→20:21)
[2022-04-14] MEDS: MORPHINE SULFATE 2 MG/ML SYRINGE IVP PRN ×3 (09:04→21:16)
[2022-04-14 16:37] VITALS: BP 149/90
[2022-04-14 21:30] VITALS: BP 151/102
[2022-04-14] MEDS ORDERED: MethylPREDNISolone SOD SUCC 125 MG/2 ML VIAL IVP ONE (22:15)
[2022-04-14] MEDS ORDERED: DiphenhydrAMINE HCL 50 MG/ML VIAL IVP ONE (22:15)
[2022-04-15 04:40] VITALS: BP 152/98
[2022-04-15] MEDS: HYDROCODONE/ACETAMINOPHEN 5-325 MG TABLET PO PRN ×2 (05:53→14:39)
[2022-04-15] MEDS: PIPERACILLIN/TAZO 3.375 GM/D5W 50 ML IV SCH (05:53)
[2022-04-15 07:47] VITALS: BP 142/88
[2022-04-15] MEDS: DOCUSATE SODIUM 100 MG CAPSULE PO SCH ×2 (09:00→09:06)
[2022-04-15] MEDS: HEPARIN SODIUM,PORCINE 5,000 UNITS/ML VIAL SQ SCH (09:06)
[2022-04-15] MEDS: PANTOPRAZOLE SODIUM 40 MG DR TABLET PO SCH (09:06)
== END 2022-04-15 16:35 | DRG 603 ==
LOC: EMS 09:07 → 6S 12:13
PROVIDERS: ADMIT Internal Medicine; ATTEND Internal Medicine
PROC: 0H98XZZ Drainage of Buttock Skin, External Approach (ICD-10-PCS; principal; 2022-04-12)
DX: L02.31 Cutaneous abscess of buttock (principal); E87.1 Hypo-osmolality and hyponatremia; L03.317 Cellulitis of buttock; E87.6 Hypokalemia; E78.5 Hyperlipidemia, unspecified; I10 Essential (primary) hypertension; R73.9 Hyperglycemia, unspecified; G80.9 Cerebral palsy, unspecified; Z20.822 Contact with and (suspected) exposure to COVID-19; M19.90 Unspecified osteoarthritis, unspecified site; Z79.899 Other long term (current) drug therapy; Z99.3 Dependence on wheelchair
CPT/HCPCS: 10060; 71045; 80048; 80053; 83605; 84132; 84484; 85025; 87040; 87070; 87205; 93005; 99285; J1200; J1644; J1885; J2270; J2543; J2930; J3490; J7040; 36415-L1; 36415-TC

== ENCOUNTER 2022-05-15 11:18 | Inpatient (IN) | payer MEDICARE, OTHER ==
[~2022-05-15 11:18] MED LIST changes: -ACET-784 PO; +ALBU8HFA IH; -AUD NEB; -AZIT-84 PO; -BISA10SU11 PR; +DOCU-350 PO; -HEPA500018 SQ; -HYDR-4061 PO; +METH85CR16 TP; -NIFE-40 PO
[2022-05-15 12:18] LABS: COVID AG,FIA SOURCE NASOPHARYNGEAL
[2022-05-15 12:21] LABS: BASOPHILS % (AUTO) 0.5 % (0.0-2.0); EOSINOPHILS % (AUTO) 0.1 % (1.0-6.0); HEMATOCRIT 40.6 % (41-53); HEMOGLOBIN 14.2 g/dL (13.5-17.5); LYMPHOCYTES # (AUTO) 0.9 K/uL (1.0-4.8); LYMPHOCYTES % (AUTO) 14.1 % (22.0-44.0); MEAN CORPUSCULAR HEMOGLOBIN 31.9 pg (26.0-34.0); MEAN CORPUSCULAR HGB CONC 34.9 G/dL (31.0-37.0); MEAN CORPUSCULAR VOLUME 91 fL (80-100); MONOCYTES # (AUTO) 0.7 K/uL (0.1-1.0); MONOCYTES % (AUTO) 12.3 % (2.0-9.0); NEUTROPHILS # (AUTO) 4.4 K/uL (1.8-7.7); PLATELET COUNT (AUTO) 168 K/uL (150-450); RED BLOOD CELL COUNT(AUTO) 4.44 MIL/uL (4.50-5.90); RED CELL DISTRIBUTION WIDTH 14.2 % (11.5-14.5)
[2022-05-15 12:34] LABS: ANION GAP 9 mmol/L (8-16); CALCIUM, TOTAL 8.3 mg/dL (8.8-10.5); CARBON DIOXIDE 26 mmol/L (22-29); CHLORIDE 101 mmol/L (98-107); GLOMERULAR FILTR. RATE CALC > 60 mL/min (>60); GLUCOSE,RANDOM 109 mg/dL (70-110); POTASSIUM 3.9 mmol/L (3.5-5.1); SODIUM SERUM 136 mmol/L (136-145); UREA NITROGEN, BLOOD 22 mg/dL (7-18)
[2022-05-15 13:02] LABS: ALANINE AMINOTRANSFERASE 50 U/L (12-78); ALBUMIN 3.2 g/dL (3.4-5.0); ALKALINE PHOSPHATASE 70 U/L (46-116); ASPARTATE AMINOTRANSFERASE 34 U/L (15-37); BILIRUBIN,TOTAL 0.6 mg/dL (0.1-1.0); CREATINE KINASE, TOTAL ONLY 183 U/L (39-308); FERRITIN 143 ng/mL (26-388); LACTATE DEHYDROGENASE 180 U/L (85-227); PHOSPHORUS 4.3 mg/dL (2.5-4.9); TOTAL PROTEIN, SERUM 6.7 g/dL (6.4-8.2)
[2022-05-15] MEDS ORDERED: CHOL10002 PO (13:13)
[2022-05-15] MEDS ORDERED: NIFE30TA98 PO (13:13)
[2022-05-15] MEDS ORDERED: HYDR25TA PO (13:13)
[2022-05-15] MEDS ORDERED: ACETAMINOPHEN 325 MG TABLET PO PRN ×2 (13:15→16:45)
[2022-05-15] MEDS ORDERED: ONDANSETRON HCL 4 MG/2 ML VIAL IVP PRN ×2 (13:15→16:45)
[2022-05-15 13:51] LABS: ERYTHROCYTE SEDIMENTATION RATE 28 MM/HR (0-15)
[2022-05-15] MEDS ORDERED: MORPHINE SULFATE 2 MG/ML SYRINGE IVP PRN (16:45)
[2022-05-15] MEDS ORDERED: ZOLPIDEM TARTRATE 5 MG TABLET PO PRN (16:45)
[2022-05-15] MEDS ORDERED: BISACODYL 10 MG RECTAL RECTAL SUPPOSITORY PR PRN (16:45)
[2022-05-15] MEDS ORDERED: REMDESIVIR 200 MG in SODIUM CHLORIDE 0.9% 250 ML IV ONE (16:45)
[2022-05-15] MEDS ORDERED: HYDROCODONE/ACETAMINOPHEN 5-325 MG TABLET PO PRN (16:45)
[2022-05-15] MEDS ORDERED: MAGNESIUM HYDROXIDE SUSPENSION 30 ML UDCUP PO PRN ×2 (16:45)
[2022-05-15] MEDS ORDERED: IPRATROPIUM BROMIDE HFA 17 MCG/PUFF 12.9 GM INHALER IH PRN (16:45)
[2022-05-15] MEDS ORDERED: ALBUTEROL SULFATE HFA 90 MCG/PUFF 8 GM INHALER IH PRN (16:45)
[2022-05-15 20:50] VITALS: BP_SYST 144; BP_DIAS 80; BP_DIAS 83
[2022-05-15] MEDS: BACLOFEN 10 MG TABLET PO SCH (22:14)
[2022-05-15] MEDS: ATORVASTATIN CALCIUM 40 MG TABLET PO SCH (22:14)
[2022-05-15] MEDS: DOCUSATE SODIUM 100 MG CAPSULE PO SCH (22:14)
[2022-05-16] MEDS: HEPARIN SODIUM,PORCINE 5,000 UNITS/ML VIAL SQ SCH ×3 (00:39→16:36)
[2022-05-16 05:44] VITALS: BP 138/95
[2022-05-16 06:07] LABS: BASOPHILS % (AUTO) 0.1 % (0.0-2.0); EOSINOPHILS % (AUTO) 0 % (1.0-6.0); HEMATOCRIT 40.6 % (41-53); HEMOGLOBIN 14.2 g/dL (13.5-17.5); MEAN CORPUSCULAR HEMOGLOBIN 32.3 pg (26.0-34.0); MEAN CORPUSCULAR HGB CONC 35.1 G/dL (31.0-37.0); MEAN CORPUSCULAR VOLUME 92 fL (80-100); MONOCYTES # (AUTO) 0.4 K/uL (0.1-1.0); MONOCYTES % (AUTO) 4.9 % (2.0-9.0); NEUTROPHILS # (AUTO) 6.4 K/uL (1.8-7.7); PLATELET COUNT (AUTO) 173 K/uL (150-450); RED BLOOD CELL COUNT(AUTO) 4.41 MIL/uL (4.50-5.90); RED CELL DISTRIBUTION WIDTH 14.3 % (11.5-14.5)
[2022-05-16 06:19] LABS: ALANINE AMINOTRANSFERASE 47 U/L (12-78); ALKALINE PHOSPHATASE 66 U/L (46-116); ANION GAP 7 mmol/L (8-16); ASPARTATE AMINOTRANSFERASE 32 U/L (15-37); BILIRUBIN,TOTAL 0.4 mg/dL (0.1-1.0); CALCIUM, TOTAL 8.5 mg/dL (8.8-10.5); CARBON DIOXIDE 25 mmol/L (22-29); CHLORIDE 100 mmol/L (98-107); CREATININE 0.78 mg/dL (0.60-1.30); GLOMERULAR FILTR. RATE CALC > 60 mL/min (>60); GLUCOSE,RANDOM 133 mg/dL (70-110); POTASSIUM 3.7 mmol/L (3.5-5.1); SODIUM SERUM 132 mmol/L (136-145); TOTAL PROTEIN, SERUM 6.9 g/dL (6.4-8.2); UREA NITROGEN, BLOOD 23 mg/dL (7-18)
[2022-05-16 08:00] VITALS: BP 130/83
[2022-05-16] MEDS: DEXAMETHASONE 4 MG TABLET PO SCH (08:43)
[2022-05-16] MEDS: HYDROCHLOROTHIAZIDE 25 MG TABLET PO SCH (08:43)
[2022-05-16] MEDS: PANTOPRAZOLE SODIUM 40 MG DR TABLET PO SCH (08:44)
[2022-05-16] MEDS: DOCUSATE SODIUM 100 MG CAPSULE PO SCH ×2 (08:44→20:24)
[2022-05-16] MEDS: ASPIRIN 81 MG DR TABLET PO SCH (08:44)
[2022-05-16] MEDS: CHOLECALCIFEROL (VIT D3) 1,000 UNITS [25 MCG] TABLET PO SCH (08:44)
[2022-05-16] MEDS ORDERED: MULTIVITAMINS WITH MINERALS, THERAPEUTIC TABLET PO SCH (09:00)
[2022-05-16 15:58] VITALS: BP 116/75
[2022-05-16] MEDS ORDERED: SODIUM CHLORIDE 0.9% 250 ML IV ONE (16:45)
[2022-05-16] MEDS: REMDESIVIR 100 MG in SODIUM CHLORIDE 0.9% 250 ML IV SCH (17:17)
[2022-05-16 20:19] VITALS: BP 130/85
[2022-05-16] MEDS: ATORVASTATIN CALCIUM 40 MG TABLET PO SCH (20:24)
[2022-05-16] MEDS: BACLOFEN 10 MG TABLET PO SCH (20:24)
[2022-05-17] MEDS: HEPARIN SODIUM,PORCINE 5,000 UNITS/ML VIAL SQ SCH ×3 (00:04→17:34)
[2022-05-17 04:16] VITALS: BP 131/83
[2022-05-17 06:22] LABS: BASOPHILS % (AUTO) 0.2 % (0.0-2.0); EOSINOPHILS % (AUTO) 0 % (1.0-6.0); HEMATOCRIT 40.2 % (41-53); HEMOGLOBIN 13.9 g/dL (13.5-17.5); LYMPHOCYTES % (AUTO) 7.8 % (22.0-44.0); MEAN CORPUSCULAR HEMOGLOBIN 31.3 pg (26.0-34.0); MEAN CORPUSCULAR HGB CONC 34.5 G/dL (31.0-37.0); MEAN CORPUSCULAR VOLUME 91 fL (80-100); MONOCYTES # (AUTO) 0.5 K/uL (0.1-1.0); MONOCYTES % (AUTO) 4.3 % (2.0-9.0); NEUTROPHILS # (AUTO) 10.8 K/uL (1.8-7.7); PLATELET COUNT (AUTO) 204 K/uL (150-450); RED BLOOD CELL COUNT(AUTO) 4.43 MIL/uL (4.50-5.90); RED CELL DISTRIBUTION WIDTH 14.3 % (11.5-14.5)
[2022-05-17 06:26] LABS: ANION GAP 7 mmol/L (8-16); CALCIUM, TOTAL 8.2 mg/dL (8.8-10.5); CARBON DIOXIDE 26 mmol/L (22-29); CHLORIDE 99 mmol/L (98-107); CREATININE 0.62 mg/dL (0.60-1.30); GLUCOSE,RANDOM 158 mg/dL (70-110); POTASSIUM 3.5 mmol/L (3.5-5.1); SODIUM SERUM 132 mmol/L (136-145); UREA NITROGEN, BLOOD 17 mg/dL (7-18)
[2022-05-17 06:42] LABS: NEUTROPHILS % (AUTO) 87.7 % (40.0-70.0)
[2022-05-17 07:12] LABS: GLOMERULAR FILTR. RATE CALC > 60 mL/min (>60)
[2022-05-17 08:00] VITALS: BP 131/98
[2022-05-17] MEDS: PANTOPRAZOLE SODIUM 40 MG DR TABLET PO SCH (08:40)
[2022-05-17] MEDS: ASPIRIN 81 MG DR TABLET PO SCH (08:40)
[2022-05-17] MEDS: HYDROCHLOROTHIAZIDE 25 MG TABLET PO SCH (08:40)
[2022-05-17] MEDS: DOCUSATE SODIUM 100 MG CAPSULE PO SCH ×2 (08:41→20:38)
[2022-05-17] MEDS: DEXAMETHASONE 4 MG TABLET PO SCH (08:41)
[2022-05-17] MEDS: MULTIVITAMINS WITH MINERALS, THERAPEUTIC TABLET PO SCH (08:41)
[2022-05-17] MEDS: CHOLECALCIFEROL (VIT D3) 1,000 UNITS [25 MCG] TABLET PO SCH (08:41)
[2022-05-17] MEDS ORDERED: MULTIVITAMINS WITH MINERALS, THERAPEUTIC TABLET PO SCH (09:00)
[2022-05-17 15:48] VITALS: BP 107/82
[2022-05-17] MEDS: REMDESIVIR 100 MG in SODIUM CHLORIDE 0.9% 250 ML IV SCH (17:34)
[2022-05-17 19:37] VITALS: BP 110/68
[2022-05-17] MEDS: ATORVASTATIN CALCIUM 40 MG TABLET PO SCH (20:39)
[2022-05-17] MEDS: BACLOFEN 10 MG TABLET PO SCH (20:39)
[2022-05-18] MEDS: HEPARIN SODIUM,PORCINE 5,000 UNITS/ML VIAL SQ SCH ×4 (00:21→23:43)
[2022-05-18 04:00] VITALS: BP 119/69
[2022-05-18 05:45] LABS: EOSINOPHILS % (AUTO) 0 % (1.0-6.0); HEMATOCRIT 42.8 % (41-53); HEMOGLOBIN 14.8 g/dL (13.5-17.5); LYMPHOCYTES # (AUTO) 1.1 K/uL (1.0-4.8); LYMPHOCYTES % (AUTO) 9.9 % (22.0-44.0); MEAN CORPUSCULAR HEMOGLOBIN 31.6 pg (26.0-34.0); MEAN CORPUSCULAR HGB CONC 34.6 G/dL (31.0-37.0); MEAN CORPUSCULAR VOLUME 92 fL (80-100); MONOCYTES # (AUTO) 0.9 K/uL (0.1-1.0); MONOCYTES % (AUTO) 8.4 % (2.0-9.0); NEUTROPHILS # (AUTO) 8.7 K/uL (1.8-7.7); NEUTROPHILS % (AUTO) 81.7 % (40.0-70.0); PLATELET COUNT (AUTO) 206 K/uL (150-450); RED BLOOD CELL COUNT(AUTO) 4.68 MIL/uL (4.50-5.90); RED CELL DISTRIBUTION WIDTH 14.1 % (11.5-14.5)
[2022-05-18 05:54] LABS: ALANINE AMINOTRANSFERASE 43 U/L (12-78); ALBUMIN 2.7 g/dL (3.4-5.0); ALKALINE PHOSPHATASE 59 U/L (46-116); ANION GAP 7 mmol/L (8-16); ASPARTATE AMINOTRANSFERASE 27 U/L (15-37); BILIRUBIN,TOTAL 0.2 mg/dL (0.1-1.0); CALCIUM, TOTAL 8.1 mg/dL (8.8-10.5); CARBON DIOXIDE 29 mmol/L (22-29); CHLORIDE 99 mmol/L (98-107); CREATININE 0.61 mg/dL (0.60-1.30); GLUCOSE,RANDOM 151 mg/dL (70-110); POTASSIUM 3.4 mmol/L (3.5-5.1); SODIUM SERUM 135 mmol/L (136-145); TOTAL PROTEIN, SERUM 6.3 g/dL (6.4-8.2); UREA NITROGEN, BLOOD 15 mg/dL (7-18)
[2022-05-18 05:56] LABS: GLOMERULAR FILTR. RATE CALC > 60 mL/min (>60)
[2022-05-18 07:00] VITALS: BP 112/71
[2022-05-18] MEDS: DOCUSATE SODIUM 100 MG CAPSULE PO SCH ×2 (09:58→20:49)
[2022-05-18] MEDS: DEXAMETHASONE 4 MG TABLET PO SCH (09:58)
[2022-05-18] MEDS: ASPIRIN 81 MG DR TABLET PO SCH (09:58)
[2022-05-18] MEDS: MULTIVITAMINS WITH MINERALS, THERAPEUTIC TABLET PO SCH (09:58)
[2022-05-18] MEDS: CHOLECALCIFEROL (VIT D3) 1,000 UNITS [25 MCG] TABLET PO SCH (09:58)
[2022-05-18] MEDS: PANTOPRAZOLE SODIUM 40 MG DR TABLET PO SCH (09:58)
[2022-05-18] MEDS: HYDROCHLOROTHIAZIDE 25 MG TABLET PO SCH (09:58)
[2022-05-18 16:53] VITALS: BP 142/84
[2022-05-18] MEDS ORDERED: POTASSIUM CHLORIDE 20 MEQ ER TABLET PO ONE (17:15)
[2022-05-18] MEDS: REMDESIVIR 100 MG in SODIUM CHLORIDE 0.9% 250 ML IV SCH (17:19)
[2022-05-18 20:20] VITALS: BP 110/84
[2022-05-18] MEDS: BACLOFEN 10 MG TABLET PO SCH (20:49)
[2022-05-18] MEDS: ATORVASTATIN CALCIUM 40 MG TABLET PO SCH (20:49)
[2022-05-19 05:06] VITALS: BP 130/84
[2022-05-19 07:15] VITALS: BP 126/82
[2022-05-19 07:25] LABS: ALANINE AMINOTRANSFERASE 58 U/L (12-78); ALBUMIN 2.7 g/dL (3.4-5.0); ALKALINE PHOSPHATASE 61 U/L (46-116); ANION GAP 6 mmol/L (8-16); ASPARTATE AMINOTRANSFERASE 28 U/L (15-37); BILIRUBIN,TOTAL 0.2 mg/dL (0.1-1.0); CALCIUM, TOTAL 8.4 mg/dL (8.8-10.5); CARBON DIOXIDE 27 mmol/L (22-29); CHLORIDE 98 mmol/L (98-107); CREATININE 0.72 mg/dL (0.60-1.30); GLUCOSE,RANDOM 116 mg/dL (70-110); POTASSIUM 3.9 mmol/L (3.5-5.1); SODIUM SERUM 131 mmol/L (136-145); TOTAL PROTEIN, SERUM 6.4 g/dL (6.4-8.2); UREA NITROGEN, BLOOD 18 mg/dL (7-18)
[2022-05-19 07:27] LABS: GLOMERULAR FILTR. RATE CALC > 60 mL/min (>60)
[2022-05-19] MEDS: DOCUSATE SODIUM 100 MG CAPSULE PO SCH ×2 (09:51→22:03)
[2022-05-19] MEDS: MULTIVITAMINS WITH MINERALS, THERAPEUTIC TABLET PO SCH (09:51)
[2022-05-19] MEDS: HYDROCHLOROTHIAZIDE 25 MG TABLET PO SCH (09:51)
[2022-05-19] MEDS: HEPARIN SODIUM,PORCINE 5,000 UNITS/ML VIAL SQ SCH ×3 (09:51→23:24)
[2022-05-19] MEDS: CHOLECALCIFEROL (VIT D3) 1,000 UNITS [25 MCG] TABLET PO SCH (09:52)
[2022-05-19] MEDS: DEXAMETHASONE 4 MG TABLET PO SCH (09:52)
[2022-05-19] MEDS: PANTOPRAZOLE SODIUM 40 MG DR TABLET PO SCH (09:52)
[2022-05-19] MEDS: ASPIRIN 81 MG DR TABLET PO SCH (09:52)
[2022-05-19 15:13] VITALS: BP 130/89
[2022-05-19] MEDS: REMDESIVIR 100 MG in SODIUM CHLORIDE 0.9% 250 ML IV SCH (18:55)
[2022-05-19 20:00] VITALS: BP 113/73
[2022-05-19] MEDS: BACLOFEN 10 MG TABLET PO SCH (22:03)
[2022-05-19] MEDS: ATORVASTATIN CALCIUM 40 MG TABLET PO SCH (22:03)
[2022-05-20 05:09] VITALS: BP 112/76
[2022-05-20 08:21] VITALS: BP 120/82
[2022-05-20] MEDS: ASPIRIN 81 MG DR TABLET PO SCH (09:13)
[2022-05-20] MEDS: HEPARIN SODIUM,PORCINE 5,000 UNITS/ML VIAL SQ SCH ×3 (09:13→23:33)
[2022-05-20] MEDS: HYDROCHLOROTHIAZIDE 25 MG TABLET PO SCH (09:13)
[2022-05-20] MEDS: PANTOPRAZOLE SODIUM 40 MG DR TABLET PO SCH (09:13)
[2022-05-20] MEDS: MULTIVITAMINS WITH MINERALS, THERAPEUTIC TABLET PO SCH (09:13)
[2022-05-20] MEDS: DOCUSATE SODIUM 100 MG CAPSULE PO SCH ×2 (09:13→20:46)
[2022-05-20] MEDS: CHOLECALCIFEROL (VIT D3) 1,000 UNITS [25 MCG] TABLET PO SCH (09:13)
[2022-05-20] MEDS: DEXAMETHASONE 4 MG TABLET PO SCH (09:13)
[2022-05-20 15:51] VITALS: BP 109/64
[2022-05-20 19:52] VITALS: BP 119/61
[2022-05-20] MEDS: BACLOFEN 10 MG TABLET PO SCH (20:46)
[2022-05-20] MEDS: ATORVASTATIN CALCIUM 40 MG TABLET PO SCH (20:46)
[2022-05-21 05:00] VITALS: BP 104/65
[2022-05-21 08:00] VITALS: BP 130/92
[2022-05-21] MEDS: HEPARIN SODIUM,PORCINE 5,000 UNITS/ML VIAL SQ SCH ×3 (08:42→23:34)
[2022-05-21] MEDS: CHOLECALCIFEROL (VIT D3) 1,000 UNITS [25 MCG] TABLET PO SCH (08:43)
[2022-05-21] MEDS: DEXAMETHASONE 4 MG TABLET PO SCH (08:43)
[2022-05-21] MEDS: PANTOPRAZOLE SODIUM 40 MG DR TABLET PO SCH (08:43)
[2022-05-21] MEDS: DOCUSATE SODIUM 100 MG CAPSULE PO SCH ×2 (08:43→20:14)
[2022-05-21] MEDS: MULTIVITAMINS WITH MINERALS, THERAPEUTIC TABLET PO SCH (08:43)
[2022-05-21] MEDS: ASPIRIN 81 MG DR TABLET PO SCH (08:43)
[2022-05-21] MEDS: HYDROCHLOROTHIAZIDE 25 MG TABLET PO SCH (08:43)
[2022-05-21 16:00] VITALS: BP 105/74
[2022-05-21 19:30] VITALS: BP 107/75
[2022-05-21] MEDS: ATORVASTATIN CALCIUM 40 MG TABLET PO SCH (20:13)
[2022-05-21] MEDS: BACLOFEN 10 MG TABLET PO SCH (20:14)
[2022-05-21 22:14] LABS: COVID AG,FIA SOURCE NASOPHARYNGEAL
[2022-05-22 04:00] VITALS: BP 113/76
[2022-05-22 08:00] VITALS: BP 146/87
[2022-05-22] MEDS: CHOLECALCIFEROL (VIT D3) 1,000 UNITS [25 MCG] TABLET PO SCH (08:21)
[2022-05-22] MEDS: HEPARIN SODIUM,PORCINE 5,000 UNITS/ML VIAL SQ SCH (08:21)
[2022-05-22] MEDS: PANTOPRAZOLE SODIUM 40 MG DR TABLET PO SCH (08:21)
[2022-05-22] MEDS: DOCUSATE SODIUM 100 MG CAPSULE PO SCH (08:21)
[2022-05-22] MEDS: MULTIVITAMINS WITH MINERALS, THERAPEUTIC TABLET PO SCH (08:21)
[2022-05-22] MEDS: HYDROCHLOROTHIAZIDE 25 MG TABLET PO SCH (08:21)
[2022-05-22] MEDS: DEXAMETHASONE 4 MG TABLET PO SCH (08:23)
[2022-05-22] MEDS: ASPIRIN 81 MG DR TABLET PO SCH (08:23)
[2022-05-22] MEDS ORDERED: HEPA500018 SQ (11:13)
[2022-05-22] MEDS ORDERED: PANT-31 PO (11:14)
[2022-05-22] MEDS ORDERED: ACET-2247 PO (11:15)
[2022-05-22] MEDS ORDERED: ALBU8HFA IH (11:17)
== END 2022-05-22 12:41 | DRG 177 ==
LOC: EMS 11:18 → 6N 18:43
PROVIDERS: ADMIT Internal Medicine; ATTEND Internal Medicine
PROC: XW033E5 Introduction of Remdesivir Anti-infective into Peripheral Vein, Percutaneous Approach, New Technology Group 5 (ICD-10-PCS; principal; 2022-05-15)
DX: U07.1 COVID-19 (principal); J12.82 Pneumonia due to coronavirus disease 2019; J96.91 Respiratory failure, unspecified with hypoxia; E44.1 Mild protein-calorie malnutrition; E87.1 Hypo-osmolality and hyponatremia; J45.901 Unspecified asthma with (acute) exacerbation; E78.5 Hyperlipidemia, unspecified; E87.6 Hypokalemia; I10 Essential (primary) hypertension; Z79.899 Other long term (current) drug therapy
CPT/HCPCS: 71045; 80048; 80053; 82550; 82728; 83605; 83615; 83735; 84100; 84145; 84484; 85025; 85379; 85651; 87081; 93005; 99291; J1644; J7050; J8540; Q9967; 36415-L1; 36415-TC

== ENCOUNTER 2022-08-03 16:16 | Inpatient (IN) | payer MEDICARE, OTHER ==
[~2022-08-03] VITALS: Ht 182.9 cm; Wt 61.1 kg
[~2022-08-03 16:16] MED LIST changes: -ALBU8HFA IH; -ASPI-1444 PO; +ASPI-1450 PO; -CHOL400T56 PO; -IPRNEB IH; -MAGN-169 PO; +METO25 PO; +MULT-1239 PO; -MULT-34 PO; +PANT-31 PO
[2022-08-03] MEDS ORDERED: NIFE-141 PO (16:33)
[2022-08-03] MEDS ORDERED: CHOL400T33 PO (16:33)
[2022-08-03] MEDS ORDERED: MAGN-169 PO (16:33)
[2022-08-03] MEDS ORDERED: ALBU8HFA IH (16:33)
[2022-08-03] MEDS ORDERED: HYDR25TA2 PO (16:33)
[2022-08-03] MEDS ORDERED: ASPI-1444 PO (16:40)
[2022-08-03] MEDS ORDERED: CHOL10002 PO (16:40)
[2022-08-03] MEDS ORDERED: SODIUM CHLORIDE 0.9% 1,900 ML IV ONE (16:45)
[2022-08-03] MEDS ORDERED: CefTRIAXone 1 GM/DEXTROSE 50 ML IV ONE (16:45)
[2022-08-03 16:55] LABS: BASOPHILS % (AUTO) 0.2 % (0.0-2.0); EOSINOPHILS % (AUTO) 0 % (1.0-6.0); HEMATOCRIT 40.9 % (41-53); HEMOGLOBIN 13.9 g/dL (13.5-17.5); LYMPHOCYTES # (AUTO) 0.7 K/uL (1.0-4.8); LYMPHOCYTES % (AUTO) 3.6 % (22.0-44.0); MEAN CORPUSCULAR VOLUME 91 fL (80-100); MONOCYTES % (AUTO) 10.2 % (2.0-9.0); NEUTROPHILS # (AUTO) 16.8 K/uL (1.8-7.7); PLATELET COUNT (AUTO) 283 K/uL (150-450); RED BLOOD CELL COUNT(AUTO) 4.49 MIL/uL (4.50-5.90); RED CELL DISTRIBUTION WIDTH 13.9 % (11.5-14.5)
[2022-08-03 17:09] LABS: APPEARANCE,URINE HAZY (CLEAR); BILIRUBIN,URINE NEGATIVE (NEGATIVE); GLUCOSE, URINE (UA) NEGATIVE (NEGATIVE); LEUKOCYTE ESTERASE ,URINE LARGE (NEGATIVE); NITRATE,URINE POSITIVE (NEGATIVE); OCCULT BLOOD,URINE NEGATIVE (NEGATIVE); PROTEIN,URINE 30-70 mg/dL (NEGATIVE); SPECIFIC GRAVITIY, URINE 1.018 (1.003-1.030); UROBILINOGEN,URINE <=1.0 mg/dL (<=1.0)
[2022-08-03 17:09] LABS: ALANINE AMINOTRANSFERASE 41 U/L (12-78); ALBUMIN 3.4 g/dL (3.4-5.0); ALKALINE PHOSPHATASE 73 U/L (46-116); ANION GAP 7 mmol/L (8-16); ASPARTATE AMINOTRANSFERASE 35 U/L (15-37); BILIRUBIN,TOTAL 0.9 mg/dL (0.1-1.0); CALCIUM, TOTAL 8.8 mg/dL (8.8-10.5); CARBON DIOXIDE 27 mmol/L (22-29); CHLORIDE 92 mmol/L (98-107); CREATININE 1.01 mg/dL (0.60-1.30); GLOMERULAR FILTR. RATE CALC > 60 mL/min (>60); GLUCOSE,RANDOM 130 mg/dL (70-110); LIPASE 147 U/L (73-393); POTASSIUM 3.2 mmol/L (3.5-5.1); SODIUM SERUM 126 mmol/L (136-145); UREA NITROGEN, BLOOD 15 mg/dL (7-18)
[2022-08-03] MEDS ORDERED: ACETAMINOPHEN 500 MG TABLET PO ONE (17:15)
[2022-08-03] MEDS ORDERED: ONDANSETRON HCL 4 MG/2 ML VIAL IVP ONE (17:15)
[2022-08-03 17:17] LABS: RBC,URINE 0-2 /HPF (0-2)
[2022-08-03 17:18] LABS: BACTERIA,URINE Moderate /HPF (None Seen); SQUAMOUS EPITHELIAL CELL,UR Few /LPF (None Seen); WBC,URINE 26-50 /HPF (0-5)
[2022-08-03 17:29] LABS: LACTIC ACID 1.8 mmol/L (0.4-2.0)
[2022-08-03 17:31] LABS: COVID AG,FIA SOURCE NASOPHARYNGEAL
[2022-08-03 17:51] LABS: INFLUENZA TYPE A NEGATIVE FOR TYPE A (NEGATIVE); INFLUENZA TYPE B NEGATIVE FOR TYPE B (NEGATIVE)
[2022-08-03] MEDS ORDERED: SODIUM CHLORIDE 0.9% 1,000 ML IV ONE (18:00)
[2022-08-03] MEDS ORDERED: BISACODYL 10 MG RECTAL RECTAL SUPPOSITORY PR PRN (18:00)
[2022-08-03] MEDS ORDERED: ZOLPIDEM TARTRATE 5 MG TABLET PO PRN (18:00)
[2022-08-03] MEDS ORDERED: MAGNESIUM HYDROXIDE SUSPENSION 30 ML UDCUP PO PRN (18:00)
[2022-08-03] MEDS ORDERED: ONDANSETRON HCL 4 MG/2 ML VIAL IVP PRN (18:00)
[2022-08-03] MEDS ORDERED: MORPHINE SULFATE 2 MG/ML SYRINGE IVP PRN (18:00)
[2022-08-03] MEDS ORDERED: PIPERACILLIN/TAZO 3.375 GM/D5W 50 ML IV ONE (18:15)
[2022-08-03 21:30] VITALS: BP 102/58
[2022-08-03] MEDS: ACETAMINOPHEN 325 MG TABLET PO PRN (22:09)
[2022-08-03] MEDS: DOCUSATE SODIUM 100 MG CAPSULE PO SCH (22:09)
[2022-08-04] MEDS: HEPARIN SODIUM,PORCINE 5,000 UNITS/ML VIAL SQ SCH ×3 (00:18→15:24)
[2022-08-04 00:28] VITALS: BP 111/63
[2022-08-04] MEDS: PIPERACILLIN/TAZO 3.375 GM/D5W 50 ML IV SCH ×4 (01:50→20:36)
[2022-08-04 04:15] VITALS: BP 104/60
[2022-08-04 07:22] VITALS: BP 109/60
[2022-08-04 07:35] LABS: BASOPHILS % (AUTO) 0.3 % (0.0-2.0); EOSINOPHILS % (AUTO) 0.6 % (1.0-6.0); HEMATOCRIT 32.1 % (41-53); HEMOGLOBIN 10.9 g/dL (13.5-17.5); LYMPHOCYTES # (AUTO) 1.2 K/uL (1.0-4.8); LYMPHOCYTES % (AUTO) 7.9 % (22.0-44.0); MEAN CORPUSCULAR HEMOGLOBIN 31.3 pg (26.0-34.0); MEAN CORPUSCULAR VOLUME 92 fL (80-100); MONOCYTES # (AUTO) 1.4 K/uL (0.1-1.0); NEUTROPHILS # (AUTO) 12.4 K/uL (1.8-7.7); NEUTROPHILS % (AUTO) 82.2 % (40.0-70.0); PLATELET COUNT (AUTO) 229 K/uL (150-450); RED CELL DISTRIBUTION WIDTH 13.9 % (11.5-14.5)
[2022-08-04 07:48] LABS: ANION GAP 7 mmol/L (8-16); CARBON DIOXIDE 26 mmol/L (22-29); CHLORIDE 102 mmol/L (98-107); CREATININE 0.88 mg/dL (0.60-1.30); GLUCOSE,RANDOM 91 mg/dL (70-110); SODIUM SERUM 135 mmol/L (136-145); UREA NITROGEN, BLOOD 21 mg/dL (7-18)
[2022-08-04 07:49] LABS: GLOMERULAR FILTR. RATE CALC > 60 mL/min (>60)
[2022-08-04 07:51] LABS: POTASSIUM 2.9 mmol/L (3.5-5.1)
[2022-08-04] MEDS: PANTOPRAZOLE SODIUM 40 MG DR TABLET PO SCH (08:07)
[2022-08-04] MEDS: DOCUSATE SODIUM 100 MG CAPSULE PO SCH ×2 (08:07→20:36)
[2022-08-04] MEDS ORDERED: POTASSIUM CHLORIDE 20 MEQ ER TABLET PO PRN (09:15)
[2022-08-04] MEDS: POTASSIUM CHL 10 MEQ/WATER 50 ML IV PRN ×4 (09:35→14:04)
[2022-08-04] MEDS: HYDROCODONE/ACETAMINOPHEN 5-325 MG TABLET PO PRN (09:59)
[2022-08-04] MEDS ORDERED: MAGNESIUM SULFATE 2 GM/WATER 50 ML IV PRN (10:15)
[2022-08-04] MEDS ORDERED: MAGNESIUM SULFATE 4 GM/WATER 100 ML IV PRN (10:15)
[2022-08-04] MEDS ORDERED: MAGNESIUM OXIDE 400 MG TABLET PO PRN (10:15)
[2022-08-04 10:42] LABS: ALBUMIN 2.5 g/dL (3.4-5.0)
[2022-08-04 11:45] VITALS: BP 112/61
[2022-08-04 15:25] VITALS: BP 119/77
[2022-08-04] MEDS: ACETAMINOPHEN 325 MG TABLET PO PRN (18:54)
[2022-08-04 20:15] VITALS: BP 138/74
[2022-08-05] VITALS (7 sets, daily range): BP systolic 104–142; BP diastolic 64–86
[2022-08-05] MEDS: HEPARIN SODIUM,PORCINE 5,000 UNITS/ML VIAL SQ SCH ×4 (00:42→23:43)
[2022-08-05] MEDS: PIPERACILLIN/TAZO 3.375 GM/D5W 50 ML IV SCH ×4 (02:23→20:01)
[2022-08-05] MEDS: ACETAMINOPHEN 325 MG TABLET PO PRN (05:03)
[2022-08-05 06:43] LABS: BASOPHILS % (AUTO) 0.3 % (0.0-2.0); EOSINOPHILS % (AUTO) 0.4 % (1.0-6.0); HEMATOCRIT 30.8 % (41-53); HEMOGLOBIN 10.6 g/dL (13.5-17.5); LYMPHOCYTES # (AUTO) 0.8 K/uL (1.0-4.8); LYMPHOCYTES % (AUTO) 10.1 % (22.0-44.0); MEAN CORPUSCULAR HEMOGLOBIN 31.6 pg (26.0-34.0); MEAN CORPUSCULAR HGB CONC 34.4 G/dL (31.0-37.0); MEAN CORPUSCULAR VOLUME 92 fL (80-100); MONOCYTES # (AUTO) 0.6 K/uL (0.1-1.0); MONOCYTES % (AUTO) 7.6 % (2.0-9.0); NEUTROPHILS # (AUTO) 6.4 K/uL (1.8-7.7); NEUTROPHILS % (AUTO) 81.6 % (40.0-70.0); PLATELET COUNT (AUTO) 223 K/uL (150-450); RED BLOOD CELL COUNT(AUTO) 3.35 MIL/uL (4.50-5.90); RED CELL DISTRIBUTION WIDTH 14.2 % (11.5-14.5)
[2022-08-05 06:58] LABS: ANION GAP 8 mmol/L (8-16); CALCIUM, TOTAL 7.8 mg/dL (8.8-10.5); CARBON DIOXIDE 23 mmol/L (22-29); CHLORIDE 99 mmol/L (98-107); CREATININE 0.69 mg/dL (0.60-1.30); GLUCOSE,RANDOM 79 mg/dL (70-110); POTASSIUM 3.2 mmol/L (3.5-5.1); SODIUM SERUM 130 mmol/L (136-145); UREA NITROGEN, BLOOD 10 mg/dL (7-18)
[2022-08-05 07:01] LABS: GLOMERULAR FILTR. RATE CALC > 60 mL/min (>60)
[2022-08-05] MEDS: PANTOPRAZOLE SODIUM 40 MG DR TABLET PO SCH (09:00)
[2022-08-05] MEDS: DOCUSATE SODIUM 100 MG CAPSULE PO SCH ×2 (09:00→20:12)
[2022-08-05] MEDS ORDERED: SODIUM CHLORIDE 0.9% 1,000 ML IV ONE (09:45)
[2022-08-05] MEDS ORDERED: VANCOMYCIN HCL 1.25 GM in DEXTROSE 5%-WATER 250 ML IV ONE (10:00)
[2022-08-05] MEDS: HYDROCODONE/ACETAMINOPHEN 5-325 MG TABLET PO PRN (10:29)
[2022-08-05 10:32] LABS: COVID AG,FIA SOURCE NASOPHARYNGEAL
[2022-08-05] MEDS: VANCOMYCIN HCL 1.25 GM in DEXTROSE 5%-WATER 250 ML IV SCH (20:39)
[2022-08-06] MEDS: PIPERACILLIN/TAZO 3.375 GM/D5W 50 ML IV SCH ×2 (01:57→08:10)
[2022-08-06 04:00] VITALS: BP 103/64
[2022-08-06 06:39] LABS: BASOPHILS % (AUTO) 0.6 % (0.0-2.0); EOSINOPHILS % (AUTO) 1.7 % (1.0-6.0); HEMATOCRIT 33.6 % (41-53); HEMOGLOBIN 11.5 g/dL (13.5-17.5); LYMPHOCYTES # (AUTO) 1.1 K/uL (1.0-4.8); LYMPHOCYTES % (AUTO) 21.1 % (22.0-44.0); MEAN CORPUSCULAR HEMOGLOBIN 31.3 pg (26.0-34.0); MEAN CORPUSCULAR HGB CONC 34.3 G/dL (31.0-37.0); MEAN CORPUSCULAR VOLUME 91 fL (80-100); MONOCYTES # (AUTO) 0.5 K/uL (0.1-1.0); MONOCYTES % (AUTO) 10.5 % (2.0-9.0); NEUTROPHILS # (AUTO) 3.4 K/uL (1.8-7.7); NEUTROPHILS % (AUTO) 66.1 % (40.0-70.0); PLATELET COUNT (AUTO) 231 K/uL (150-450); RED BLOOD CELL COUNT(AUTO) 3.68 MIL/uL (4.50-5.90); RED CELL DISTRIBUTION WIDTH 14.3 % (11.5-14.5)
[2022-08-06 06:51] LABS: ANION GAP 9 mmol/L (8-16); CALCIUM, TOTAL 8.4 mg/dL (8.8-10.5); CARBON DIOXIDE 25 mmol/L (22-29); CHLORIDE 101 mmol/L (98-107); CREATININE 0.71 mg/dL (0.60-1.30); GLUCOSE,RANDOM 109 mg/dL (70-110); POTASSIUM 3.5 mmol/L (3.5-5.1); SODIUM SERUM 135 mmol/L (136-145); UREA NITROGEN, BLOOD 5 mg/dL (7-18)
[2022-08-06 06:52] LABS: GLOMERULAR FILTR. RATE CALC > 60 mL/min (>60)
[2022-08-06 07:30] VITALS: BP 150/93
[2022-08-06] MEDS: ACETAMINOPHEN 325 MG TABLET PO PRN ×2 (07:31→15:46)
[2022-08-06] MEDS: DOCUSATE SODIUM 100 MG CAPSULE PO SCH ×2 (08:11→21:00)
[2022-08-06] MEDS: PANTOPRAZOLE SODIUM 40 MG DR TABLET PO SCH (08:11)
[2022-08-06] MEDS: HEPARIN SODIUM,PORCINE 5,000 UNITS/ML VIAL SQ SCH ×3 (08:11→23:27)
[2022-08-06] MEDS: VANCOMYCIN HCL 1.25 GM in DEXTROSE 5%-WATER 250 ML IV SCH (09:53)
[2022-08-06] MEDS ORDERED: *CLINICAL-CEFEPIME DOSING CLINICAL ONE (11:15)
[2022-08-06 11:37] VITALS: BP 116/68
[2022-08-06] MEDS: CEFEPIME HCL 1 GM in DEXTROSE 5%-WATER 50 ML IV SCH ×2 (12:20→23:27)
[2022-08-06 15:48] VITALS: BP 150/90
[2022-08-06 19:10] VITALS: BP 127/69
[2022-08-06 23:30] VITALS: BP 118/70
[2022-08-07 03:30] VITALS: BP 120/64
[2022-08-07 06:48] LABS: CHLORIDE 103 mmol/L (98-107); POTASSIUM 3.7 mmol/L (3.5-5.1); SODIUM SERUM 137 mmol/L (136-145)
[2022-08-07 06:49] LABS: ANION GAP 6 mmol/L (8-16); CALCIUM, TOTAL 9.1 mg/dL (8.8-10.5); CARBON DIOXIDE 28 mmol/L (22-29); GLOMERULAR FILTR. RATE CALC > 60 mL/min (>60); GLUCOSE,RANDOM 104 mg/dL (70-110); UREA NITROGEN, BLOOD 8 mg/dL (7-18)
[2022-08-07 07:25] VITALS: BP 149/88
[2022-08-07] MEDS: DOCUSATE SODIUM 100 MG CAPSULE PO SCH (07:41)
[2022-08-07] MEDS: PANTOPRAZOLE SODIUM 40 MG DR TABLET PO SCH (07:42)
[2022-08-07] MEDS: HEPARIN SODIUM,PORCINE 5,000 UNITS/ML VIAL SQ SCH ×2 (07:43→15:56)
[2022-08-07 09:22] VITALS: BP 143/90
[2022-08-07] MEDS ORDERED: SODIUM CHLORIDE 0.9% 500 ML IV ONE (10:52)
[2022-08-07] MEDS ORDERED: CEFD300C18 PO (11:57)
[2022-08-07] MEDS: CEFEPIME HCL 1 GM in DEXTROSE 5%-WATER 50 ML IV SCH (14:06)
[2022-08-07] MEDS ORDERED: CEFDINIR 300 MG CAPSULE PO SCH (21:00)
== END 2022-08-07 19:10 | disposition home or self-care (01) | DRG 872 ==
LOC: EMS 16:28 → 5S 20:35 → 6N 08-07 09:05
PROVIDERS: ADMIT Internal Medicine; ATTEND Internal Medicine
DX: A41.9 Sepsis, unspecified organism (principal); N39.0 Urinary tract infection, site not specified; E87.1 Hypo-osmolality and hyponatremia; E78.5 Hyperlipidemia, unspecified; E87.6 Hypokalemia; G80.9 Cerebral palsy, unspecified; I10 Essential (primary) hypertension; J45.909 Unspecified asthma, uncomplicated; Z20.822 Contact with and (suspected) exposure to COVID-19; B96.20 Unspecified Escherichia coli [E. coli] as the cause of diseases classified elsewhere; R53.81 Other malaise; Z86.16 Personal history of COVID-19; Z99.3 Dependence on wheelchair; Z79.82 Long term (current) use of aspirin; Z79.899 Other long term (current) drug therapy
CPT/HCPCS: 71045; 80048; 80053; 81001; 82040; 82271; 83605; 83690; 83735; 84132; 84484; 85025; 87040; 87081; 87086; 87186; 87804; 93005; 99291; J0692; J0696; J1644; J2270; J2405; J2543; J3370; J3480; J7030; J7040; J7060; Q9967; 36415-L1; 36415-TC

== ENCOUNTER 2022-08-19 12:56 | Emergency (ER) | payer MEDICARE, OTHER ==
[~2022-08-19] VITALS: Ht 162.6 cm; Wt 81.8 kg
[~2022-08-19 12:56] MED LIST changes: +ALBU8HFA IH; +ASPI-1444 PO; -ASPI-1450 PO; +CEFD300C18 PO; +CHOL10002 PO; +CHOL400T33 PO; +HYDR25TA2 PO; +MAGN-169 PO; -METH85CR16 TP; -METO25 PO; +NIFE-141 PO; -PANT-31 PO
[2022-08-19 14:14] LABS: APPEARANCE,URINE HAZY (CLEAR); BILIRUBIN,URINE NEGATIVE (NEGATIVE); GLUCOSE, URINE (UA) NEGATIVE (NEGATIVE); KETONES,URINE NEGATIVE (NEGATIVE); LEUKOCYTE ESTERASE ,URINE LARGE (NEGATIVE); NITRATE,URINE NEGATIVE (NEGATIVE); OCCULT BLOOD,URINE LARGE (NEGATIVE); PH,URINE 6.5 (5.0-8.0); PROTEIN,URINE 100-200,SEE CONFIRM mg/dL (NEGATIVE); SPECIFIC GRAVITIY, URINE 1.007 (1.003-1.030); UROBILINOGEN,URINE <=1.0 mg/dL (<=1.0)
[2022-08-19 14:22] LABS: BACTERIA,URINE Few /HPF (None Seen); RBC,URINE 26-50 /HPF (0-2); SQUAMOUS EPITHELIAL CELL,UR Few /LPF (None Seen)
[2022-08-19 14:23] LABS: SULFOSALICYLIC ACID,URINE 2+ (Negative)
[2022-08-19] MEDS ORDERED: AMOX1TAB16 PO (14:32)
[2022-08-19 16:57] VITALS: BP 144/82
== END 2022-08-19 17:08 | disposition home or self-care (01) ==
LOC: EMS 12:59
DX: N39.0 Urinary tract infection, site not specified (principal); I10 Essential (primary) hypertension; Z79.899 Other long term (current) drug therapy
CPT/HCPCS: 81001; 81002; 87086; 87186; 99283

== ENCOUNTER 2022-11-11 19:52 | Emergency (ER) | payer MEDICARE, OTHER ==
[~2022-11-11] VITALS: Ht 160 cm; Wt 64.0 kg
[~2022-11-11 19:52] MED LIST changes: +AMOX1TAB16 PO; -CEFD300C18 PO
[2022-11-11 20:28] LABS: COVID AG,FIA SOURCE NASAL SWAB
[2022-11-11 20:55] LABS: INFLUENZA TYPE A NEGATIVE FOR TYPE A (NEGATIVE); INFLUENZA TYPE B NEGATIVE FOR TYPE B (NEGATIVE)
[2022-11-11] MEDS ORDERED: NIRM1TAB4 PO (22:53)
[2022-11-11] MEDS ORDERED: ALBU8HFA IH (22:54)
[2022-11-12 00:05] VITALS: BP 154/83
== END 2022-11-12 01:23 | disposition home or self-care (01) ==
LOC: EMS 19:52
DX: U07.1 COVID-19 (principal); I10 Essential (primary) hypertension; G80.9 Cerebral palsy, unspecified; Z98.890 Other specified postprocedural states
CPT/HCPCS: 71046; 87804; 99284

== ENCOUNTER 2023-01-07 13:41 | Emergency (ER) | payer MEDICARE, OTHER ==
[~2023-01-07] VITALS: Ht 167.6 cm; Wt 78.2 kg
[~2023-01-07 13:41] MED LIST changes: +ALBU18HF12 IH; -ALBU8HFA IH; +HYDR-4870 PO; -HYDR25TA2 PO; +NIRM1TAB4 PO
[2023-01-07 14:47] LABS: BASOPHILS % (AUTO) 0.7 % (0.0-2.0); EOSINOPHILS % (AUTO) 1.5 % (1.0-6.0); HEMOGLOBIN 14.3 g/dL (13.5-17.5); LYMPHOCYTES # (AUTO) 1.3 K/uL (1.0-4.8); LYMPHOCYTES % (AUTO) 19.7 % (22.0-44.0); MEAN CORPUSCULAR HEMOGLOBIN 31.4 pg (26.0-34.0); MEAN CORPUSCULAR VOLUME 92 fL (80-100); MONOCYTES # (AUTO) 1.1 K/uL (0.1-1.0); MONOCYTES % (AUTO) 17.4 % (2.0-9.0); NEUTROPHILS # (AUTO) 3.9 K/uL (1.8-7.7); NEUTROPHILS % (AUTO) 60.7 % (40.0-70.0); PLATELET COUNT (AUTO) 280 K/uL (150-450); RED BLOOD CELL COUNT(AUTO) 4.55 MIL/uL (4.50-5.90); RED CELL DISTRIBUTION WIDTH 14.3 % (11.5-14.5)
[2023-01-07 14:53] LABS: ANION GAP 10 mmol/L (8-16); CALCIUM, TOTAL 8.8 mg/dL (8.8-10.5); CARBON DIOXIDE 26 mmol/L (22-29); CHLORIDE 99 mmol/L (98-107); CREATININE 0.63 mg/dL (0.60-1.30); GLOMERULAR FILTR. RATE CALC > 60 mL/min (>60); GLUCOSE,RANDOM 99 mg/dL (70-110); POTASSIUM 3.3 mmol/L (3.5-5.1); SODIUM SERUM 135 mmol/L (136-145); UREA NITROGEN, BLOOD 11 mg/dL (7-18)
[2023-01-07 14:59] LABS: ALANINE AMINOTRANSFERASE 37 U/L (12-78); ALBUMIN 3.7 g/dL (3.4-5.0); ALKALINE PHOSPHATASE 86 U/L (46-116); ASPARTATE AMINOTRANSFERASE 23 U/L (15-37); BILIRUBIN,TOTAL 0.3 mg/dL (0.1-1.0); LIPASE 204 U/L (73-393); TOTAL PROTEIN, SERUM 7.2 g/dL (6.4-8.2)
[2023-01-07] MEDS ORDERED: IOHEXOL 350 MG/ML 100 ML VIAL ONE (15:19)
[2023-01-07] MEDS ORDERED: SODIUM CHLORIDE 0.9% 100 ML ONE (15:19)
[2023-01-07 19:03] VITALS: BP 154/86
== END 2023-01-07 21:55 | disposition home or self-care (01) ==
LOC: EMS 13:49
DX: K52.9 Noninfective gastroenteritis and colitis, unspecified (principal); I10 Essential (primary) hypertension; G80.9 Cerebral palsy, unspecified
CPT/HCPCS: 99285; 74177; 71045; 80053; 83690; 83880; 84484; 85025; 36415; 74018; 93005; Q9967; J7050